=== PATIENT | female | born 1980 | race Caucasian/White ===

== ENCOUNTER 2016-09-19 18:48 | Emergency (ER) | payer MEDICAID ==
--- NOTE | 2016-09-19 19:19 | EDM.PDOC ---
ED HPI GENERAL MEDICAL PROBLEM - General Chief Complaint: ENT Problem Stated Complaint: PAIN JAW Time Seen by Provider: 09/19/16 19:00 Source of Information: Reports: Patient History Limitations: Reports: No limitations - History of Present Illness INITIAL COMMENTS - FREE TEXT/NARRATIVE: HISTORY AND PHYSICAL: History of present illness: Patient is a 35-year-old female who presents to the emergency department stating that she has history of TMJ problems and for the last couple of days for adjustment mocking and very painful. She states it's radiating into her years and she has pain in the ears as well. She hasn't had fevers. She denies difficulty swallowing or sore throat. She usually takes gabapentin for this but it is not helping. She states she was supposed to have surgery but hasn't happened yet no other complaints or concerns Review of systems: As per history of present illness and below otherwise all systems reviewed and negative. Past medical history: As per history of present illness and as reviewed below otherwise noncontributory. Surgical history: As per history of present illness and as reviewed below otherwise noncontributory. Social history: No reported history of drug or alcohol abuse. Family history: As per history of present illness and as reviewed below otherwise noncontributory. Physical exam: General: Nontoxic, patient is very shaky which she states is because of the pain. Vitals reviewed and stable. HEENT: Atraumatic, normocephalic, pupils reactive, TMs are normal bilaterally. Examining the ears causes pain in the jaw. She is exquisitely tender when I minimally palpate around the temporomandibular joint. She is only able to open her mouth about a third [address] way. No cervical lymph nodes. Lungs: Clear to auscultation, no respiratory distress. Heart: Regular rate and rhythm. Extremities: Atraumatic. Neuro: Awake, alert, oriented. Cranial nerves II through XII unremarkable. Cerebellum unremarkable. Motor and sensory unremarkable throughout. Exam nonfocal. Therapeutics: Voltaren 50mg po TID Impression: TMJ pain Plan: Patient given medication to help with symptoms. I referred her to Dr. Schultz, ENT in [place] for additional follow up. Definitive disposition and diagnosis as appropriate pending reevaluation and review of above. Oral/Mouth Pain Score (Numeric/FACES): 9 - Related Data Allergies Allergy/AdvReac Type Severity Reaction Status Date / Time No Known Allergies Allergy Verified 09/19/16 18:57 Home Meds: Home Meds Divalproex Sodium [Depakote] 300 mg PO BID 08/24/15 [History] Estrogens, Conjugated [Premarin] 1 tab PO DAILY 09/19/16 [History] FLUoxetine [PROzac] 1 tab PO DAILY 09/19/16 [History] Past Medical History - Past Health History Medical/Surgical History: Denies Medical/Surgical History HEENT History: Reports: Impaired vision Cardiovascular History: Reports: None Respiratory History: Reports: None Gastrointestinal History: Reports: None 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: Musculoskeletal History: Reports: None Neurological History: Reports: None Psychiatric History: Reports: Anxiety, Bipolar Endocrine/Metabolic History: Reports: None Hematologic History: Reports: None Immunologic History: Reports: None Oncologic (Cancer) History: Reports: None Dermatologic History: Reports: None - Infectious Disease History Infectious Disease History: Reports: Chicken pox - Past Surgical History Female Surgical History: Reports: Hysterectomy Social & Family History - Family History Family Medical History: Noncontributory - Tobacco Use Smoking Status *Q: Current Every Day Smoker Years of Tobacco use: 20 Packs/Tins Daily: 0.5 Second Hand Smoke Exposure: No - Caffeine Use Caffeine Use: Reports: None - Alcohol Use Days Per Week of Alcohol Use: 0 - Recreational Drug Use Recreational Drug Use: No ED ROS GENERAL - Review of Systems Review Of Systems: ROS reveals no pertinent complaints other than HPI. ED EXAM, GENERAL - Physical Exam Exam: See Below (See dictation) Course - Vital Signs Last Recorded V/S: Last Vital Signs Temp 36.2 C 09/19/16 18:54 Pulse 83 09/19/16 18:54 Resp 18 09/19/16 18:54 BP 142/79 H 09/19/16 18:54 Pulse Ox 96 09/19/16 18:54 Departure - Departure Time of Disposition: 19:11 Disposition: Home, Self-Care 01 Condition: good Clinical Impression: TMJ (temporomandibular joint syndrome) Instructions: Temporomandibular Joint Syndrome Referrals: PCP,None [Primary Care Provider] - Forms: ED Department Discharge Additional Instructions: The following information is given to patients seen in the emergency department who are being discharged to home. This information is to outline your options for follow-up care. We provide all patients seen in our emergency department with a follow-up referral. The need for follow-up, as well as the timing and circumstances, are variable depending upon the specifics of your emergency department visit. If you don't have a primary care physician on staff, we will provide you with a referral. We always advise you to contact your personal physician following an emergency department visit to inform them of the circumstance of the visit and for follow-up with them and/or the need for any referrals to a consulting specialist. The emergency department will also refer you to a specialist when appropriate. This referral assures that you have the opportunity for follow-up care with a specialist. All of these measure are taken in an effort to provide you with optimal care, which includes your follow-up. Under all circumstances we always encourage you to contact your private physician who remains a resource for coordinating your care. When calling for follow-up care, please make the office aware that this follow-up is from your recent emergency room visit. If for any reason you are refused follow-up, please contact the [facility] Emergency Department at and asked to speak to the emergency department charge nurse. [facility] - ENT Dr. Schultz [address] [place], [place] [id number]
[2016-09-19 19:35] VITALS: BP 129/77
== END 2016-09-19 19:23 | disposition home or self-care (01) ==
LOC: MW.ED 18:48
DX: M26.629 Arthralgia of temporomandibular joint, unspecified side (principal); F41.9 Anxiety disorder, unspecified; F31.9 Bipolar disorder, unspecified; Z90.710 Acquired absence of both cervix and uterus; F17.210 Nicotine dependence, cigarettes, uncomplicated; Z79.899 Other long term (current) drug therapy
CPT/HCPCS: 99282; 99283

== ENCOUNTER → 2016-10-13 | Outpatient (CLI) | payer MEDICAID | LOC: MW.CHFP 09:49 | PROVIDERS: ATTEND Family Medicine | DX: J02.9 Acute pharyngitis, unspecified (principal) | CPT/HCPCS: 87081; 87880 ==

== ENCOUNTER 2016-12-05 21:46 | Emergency (ER) | payer MEDICAID ==
--- NOTE | 2016-12-05 22:56 | EDM.PDOC ---
ED HPI GENERAL MEDICAL PROBLEM - General Stated Complaint: PT HAS SWOLLEN LEGS AND SORE THROAT Time Seen by Provider: 12/05/16 22:30 Source of Information: Reports: Patient History Limitations: Reports: No Limitations - History of Present Illness INITIAL COMMENTS - FREE TEXT/NARRATIVE: HISTORY AND PHYSICAL: History of present illness: [36-year-old female with a history of TMJ and chronic tobacco abuse now presents to the emergency department complaining of dry cough for several days. Patient is daily smoker but she states his cough is beyond her baseline. She complains of sore throat. No voice changes or difficulty breathing. No productive cough whatsoever. Denies headache or stiff neck no pain patient does report mild swelling in both ankles with no asymmetry your pain. Review of systems: As per history of present illness and below otherwise all systems reviewed and negative. Past medical history: As per history of present illness and as reviewed below otherwise noncontributory. Surgical history: As per history of present illness and as reviewed below otherwise noncontributory. Social history: No reported history of drug or alcohol abuse. Family history: As per history of present illness and as reviewed below otherwise noncontributory. Physical exam: HEENT: Atraumatic, normocephalic, pupils reactive, negative for conjunctival pallor or scleral icterus, mucous membranes moist, throat clear, neck supple, nontender, trachea midline. Lungs: Clear to auscultation, breath sounds equal bilaterally, chest nontender. Heart: S1S2, regular, negative for clicks, rubs, or JVD. Abdomen: Soft, nondistended, nontender. Negative for masses or hepatosplenomegaly. Negative for costovertebral tenderness. Pelvis: Stable nontender. Genitourinary: Deferred. Rectal: Deferred. Extremities: Atraumatic, negative for cords or calf pain. Neurovascular unremarkable. Trace nonpitting edema bilateral ankles with no asymmetry. Neuro: Awake, alert, oriented. Cranial nerves grossly unremarkable. Cerebellum unremarkable. Motor and sensory unremarkable throughout. Exam nonfocal. Diagnostics: [] Therapeutics: [] Impression: [] Plan: [Signs and symptoms consistent with viral URI with pharyngitis. No oropharyngeal exudates. Rapid strep pending to rule out less likely possibility of early strep. Nonproductive cough viral syndrome as well. Normal respiratory rate and pulse ox. Patient has no pain specifically no chest pain or pleurisy. No further workup or treatment indicated. Specifically chest x-ray not clinically indicated a specialist lungs are clear with normal respiratory rate and pulse ox on M.D. exam. Patient aware to take benzonatate as needed for cough. Smoking and follow her doctor tomorrow. Strict return precautions given Definitive disposition and diagnosis as appropriate pending reevaluation and review of above. Throat Pain Score (Numeric/FACES): 7 - Related Data Allergies Allergy/AdvReac Type Severity Reaction Status Date / Time No Known Allergies Allergy Verified 12/05/16 21:58 Home Meds: Home Meds Divalproex Sodium [Depakote] 300 mg PO BID 08/24/15 [History] Estrogens, Conjugated [Premarin] 1 tab PO DAILY 09/19/16 [History] FLUoxetine [PROzac] 1 tab PO DAILY 09/19/16 [History] Benzonatate 200 mg PO TID #30 capsule 12/05/16 [Rx] Past Medical History - Past Health History Medical/Surgical History: Denies Medical/Surgical History HEENT History: Reports: Impaired Vision Cardiovascular History: Reports: None Respiratory History: Reports: None Gastrointestinal History: Reports: None 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: Musculoskeletal History: Reports: None Neurological History: Reports: None Psychiatric History: Reports: Anxiety, Bipolar Endocrine/Metabolic History: Reports: None Hematologic History: Reports: None Immunologic History: Reports: None Oncologic (Cancer) History: Reports: None Dermatologic History: Reports: None - Infectious Disease History Infectious Disease History: Reports: Chicken Pox - Past Surgical History Female Surgical History: Reports: Hysterectomy Social & Family History - Family History Family Medical History: Noncontributory - Tobacco Use Smoking Status *Q: Current Every Day Smoker Years of Tobacco use: 20 Packs/Tins Daily: 0.5 Second Hand Smoke Exposure: No - Caffeine Use Caffeine Use: Reports: None - Alcohol Use Days Per Week of Alcohol Use: 0 - Recreational Drug Use Recreational Drug Use: No ED ROS GENERAL - Review of Systems Review Of Systems: See Below (History of present illness) ED EXAM, GENERAL - Physical Exam Exam: See Below (History of present illness) Course - Vital Signs Last Recorded V/S: Last Vital Signs Temp 36.6 C 12/05/16 21:58 Pulse 97 12/05/16 21:58 Resp 17 12/05/16 21:58 BP 123/72 12/05/16 21:58 Pulse Ox 95 12/05/16 21:58 Departure - Departure Time of Disposition: 22:58 Disposition: Home, Self-Care 01 Condition: good Clinical Impression: Viral URI with cough, Tobacco abuse, Lower extremity edema - Discharge Information Additional Instructions: Your nonproductive cough and sore throat are consistent with a viral syndrome. Take Motrin and Tylenol as needed for discomfort. Rest and drink plenty of fluids. Stop smoking. Follow-up with your DrMonty to discuss smoking cessation. Use Tessalon Perles as needed for cough and return immediately for new severe or worsening symptoms
[2016-12-05 23:30] VITALS: BP 116/68
== END 2016-12-05 23:27 | disposition home or self-care (01) ==
LOC: MW.ED 21:46
DX: J06.9 Acute upper respiratory infection, unspecified (principal); R60.0 Localized edema; F41.9 Anxiety disorder, unspecified; F31.9 Bipolar disorder, unspecified; F17.210 Nicotine dependence, cigarettes, uncomplicated; Z90.710 Acquired absence of both cervix and uterus; Z79.899 Other long term (current) drug therapy
CPT/HCPCS: 87081; 87880; 99283

== ENCOUNTER 2017-03-14 13:45 | Emergency (ER) | payer MEDICAID ==
--- NOTE | 2017-03-14 14:15 | EDM.PDOC ---
ED HPI GENERAL MEDICAL PROBLEM - General Chief Complaint: General Stated Complaint: PT IN PAIN Time Seen by Provider: 03/14/17 14:05 Source of Information: Reports: Patient History Limitations: Reports: No Limitations - History of Present Illness INITIAL COMMENTS - FREE TEXT/NARRATIVE: HISTORY AND PHYSICAL: History of present illness: [A she comes to the emergency room complaining of trembling and stuttering. She has had a cough for the past month and has been taking Mucinex DM every night for the past 5 days. Cough has been productive for yellow colored sputum. Has a history of bipolar disorder and anxiety for which she takes Depakote and Prozac and Xanax. She has has been on these medications for many years and has not made any recent medication changes. Her cough of one-month is concerning to her but she is more worried about the trembling and shaking that she is experiencing in her upper extremities. She's had some episodes of chills but has not checked her temperature. No earaches runny nose or sore throat. No pain in her chest or difficulty breathing. She has not heard any wheezing. No abdominal pain, nausea or vomiting. She has no other complaints or concerns at this time.] Review of systems: As per history of present illness and below otherwise all systems reviewed and negative. Past medical history: As per history of present illness and as reviewed below otherwise noncontributory. Surgical history: As per history of present illness and as reviewed below otherwise noncontributory. Social history: No reported history of drug or alcohol abuse. Family history: As per history of present illness and as reviewed below otherwise noncontributory. Physical exam: HEENT: Atraumatic, normocephalic. TMs are pearly [place] and without effusion. Oral mucous membranes are pink and moist. No tonsillar swelling erythema or exudate. Neck supple, no lymphadenopathy. Lungs: Crackles and wheezing are appreciated in the left mid lung lobe. breath sounds equal bilaterally. Heart: S1S2, regular rate and rhythm. Abdomen: Soft, nondistended, nontender. Extremities: Atraumatic in appearance. She is tremulous to her upper extremities with conversation. No lower extremity involvement. During examination, while focused on taking deep breaths she exhibits no shaking or trembling to her upper or lower extremities. Neurovascular unremarkable. Neuro: Awake, alert, oriented. Motor and sensory unremarkable throughout. Exam nonfocal. Psych: Makes good eye contact and interacts with examiner appropriately. Diagnostics: [Chest x-ray] Therapeutics: [500 mL's normal saline, Ativan 0.5 mg IV] Impression: [Anxiety cough] Plan: [She is given 1 L of normal saline and 0.5 mg of Ativan in the ER. Trembling resolves completely. Chest x-ray is clear. Discussed with her that her cough is likely viral in nature. Recommend she stop any decongestants or cough or cold medications that have a T or DM at the end and that she may have plain Mucinex as needed. Anticipate that her cough will resolve without any further complications. Follow-up with her primary care provider for medication review if she continues to experience anxiety. She is in agreement with today's plan. All of her questions are answered and concerns are addressed.] Definitive disposition and diagnosis as appropriate pending reevaluation and review of above. Generalized Pain Score (Numeric/FACES): 3 - Related Data Allergies Allergy/AdvReac Type Severity Reaction Status Date / Time No Known Allergies Allergy Verified 03/14/17 13:53 Home Meds: Home Meds Divalproex Sodium [Depakote] 300 mg PO BID 08/24/15 [History] FLUoxetine [PROzac] 60 mg PO DAILY 09/19/16 [History] ALPRAZolam [Xanax] 0.5 mg PO DAILY PRN 03/14/17 [History] Benzonatate 200 mg PO DAILY PRN 03/14/17 [History] Past Medical History - Past Health History Medical/Surgical History: Denies Medical/Surgical History HEENT History: Reports: Impaired Vision Cardiovascular History: Reports: None Respiratory History: Reports: None Gastrointestinal History: Reports: None Genitourinary History: Reports: 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: Musculoskeletal History: Reports: None Neurological History: Reports: None Psychiatric History: Reports: Anxiety, Bipolar Endocrine/Metabolic History: Reports: None Hematologic History: Reports: None Immunologic History: Reports: None Oncologic (Cancer) History: Reports: None Dermatologic History: Reports: None - Infectious Disease History Infectious Disease History: Reports: Chicken Pox - Past Surgical History Head Surgeries/Procedures: Reports: None Female Surgical History: Reports: Hysterectomy Social & Family History - Family History Family Medical History: Noncontributory - Tobacco Use Smoking Status *Q: Current Every Day Smoker Years of Tobacco use: 20 Packs/Tins Daily: 0.5 Second Hand Smoke Exposure: No - Caffeine Use Caffeine Use: Reports: None - Alcohol Use Days Per Week of Alcohol Use: 0 - Recreational Drug Use Recreational Drug Use: No ED ROS GENERAL - Review of Systems Review Of Systems: ROS reveals no pertinent complaints other than HPI. ED EXAM, GENERAL - Physical Exam Exam: See Below Course - Vital Signs Last Recorded V/S: Last Vital Signs Temp 97.8 F 03/14/17 13:53 Pulse 85 03/14/17 15:45 Resp 18 03/14/17 15:45 BP 138/82 03/14/17 15:45 Pulse Ox 99 03/14/17 15:45 - Orders/Labs/Meds Orders: Active Orders 24 hr Category Date Time Status Chest 2V [CR] Stat Exams 03/14/17 14:27 Taken Meds: Medications Discontinued Medications Generic Name Dose Route Start Last Admin Trade Name Gabby PRN Reason Stop Dose Admin Sodium Chloride 500 mls @ 999 mls/hr 03/14/17 14:26 03/14/17 14:32 Normal Saline IV 03/14/17 14:56 999 mls/hr STAT ONE Administration Lorazepam 0.5 mg 03/14/17 14:26 03/14/17 14:35 Ativan IVPUSH 03/14/17 14:27 0.5 mg ONETIME ONE Administration Departure - Departure Time of Disposition: 15:40 Disposition: Home, Self-Care 01 Condition: Good Clinical Impression: Anxiety, Cough - Discharge Information Instructions: Cough, Adult, [id number] Referrals: PCP,None [Primary Care Provider] - Forms: ED Department Discharge Additional Instructions: The following information is given to patients seen in the emergency department who are being discharged to home. This information is to outline your options for follow-up care. We provide all patients seen in our emergency department with a follow-up referral. The need for follow-up, as well as the timing and circumstances, are variable depending upon the specifics of your emergency department visit. If you don't have a primary care physician on staff, we will provide you with a referral. We always advise you to contact your personal physician following an emergency department visit to inform them of the circumstance of the visit and for follow-up with them and/or the need for any referrals to a consulting specialist. The emergency department will also refer you to a specialist when appropriate. This referral assures that you have the opportunity for follow-up care with a specialist. All of these measure are taken in an effort to provide you with optimal care, which includes your follow-up. Under all circumstances we always encourage you to contact your private physician who remains a resource for coordinating your care. When calling for follow-up care, please make the office aware that this follow-up is from your recent emergency room visit. If for any reason you are refused follow-up, please contact the [facility] emergency department at and asked to speak to the emergency department charge nurse. [facility] [address] [place] [id number] Follow-up with your primary care provider or at the clinic listed above in 48- 72 hours. Push fluids, get plenty of rest. Discontinue the use of all decongestants and cold medications that end with D or DM. Cough is due to a virus. This will gradually resolve with time. Return to ER as needed as discussed. - My Orders Last 24 Hours: My Active Orders 03/14/17 14:27 Chest 2V [CR] Stat - Assessment/Plan Last 24 Hours: My Active Orders 03/14/17 14:27 Chest 2V [CR] Stat
[2017-03-14] MEDS ORDERED: LORazepam 2 MG/ML MDV IVPUSH ONE (14:26)
[2017-03-14] MEDS ORDERED: Sodium Chloride 0.9% 500 ML IV ONE (14:26)
[2017-03-14 15:54] VITALS: BP 138/82
--- NOTE | 2017-03-15 16:33 | CR ---
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 Site : [id number] Study: XRay Chest [id number]/17/2017 3:18:49 PM Ordering Physician: Doctor Sin Final Report: TECHNIQUE: PA and lateral chest. INDICATION: Shortness of breath. COMPARISON: 10/04/2014. FINDINGS: The lungs are clear. Normal heart size and pulmonary vascularity. No effusion. No pneumothorax. No significant change since prior exam. IMPRESSION: Normal chest. Dictated by Lon Merritt MD @ 03/14/2017 3:32:24 PM Dictated by: Lon Merritt MD @ 03/14/2017 15:33:05 (Electronic Signature) Report Signed by Proxy. MTDVale
== END 2017-03-14 15:50 | disposition home or self-care (01) ==
LOC: MW.ED 13:45
DX: F41.9 Anxiety disorder, unspecified (principal); R05 Cough; F17.210 Nicotine dependence, cigarettes, uncomplicated; Z79.899 Other long term (current) drug therapy; Z90.710 Acquired absence of both cervix and uterus
CPT/HCPCS: 71020; 96374; 99283; J2060; J7040

== ENCOUNTER 2017-08-06 07:24 | Emergency (ER) | payer MEDICAID ==
[2017-08-06] MEDS ORDERED: Ketorolac 60 MG/2 ML SDV IM ONE (07:50)
--- NOTE | 2017-08-06 08:31 | EDM.PDOC ---
ED HPI GENERAL MEDICAL PROBLEM - General Chief Complaint: Respiratory Problem Stated Complaint: FLU LIKE SYM. Time Seen by Provider: 08/06/17 07:31 Source of Information: Reports: Patient History Limitations: Reports: No Limitations - History of Present Illness INITIAL COMMENTS - FREE TEXT/NARRATIVE: History of present illness: []Patient has had cough and congestion fevers and body aches for 4 days. Complains of ear pain and sore throat. She denies any abdominal pain, vomiting or diarrhea Review of systems: As per history of present illness and below otherwise all systems reviewed and negative. Past medical history: As per history of present illness and as reviewed below otherwise noncontributory. Surgical history: As per history of present illness and as reviewed below otherwise noncontributory. Social history: No reported history of drug or alcohol abuse. Family history: As per history of present illness and as reviewed below otherwise noncontributory. Physical exam: General: Well developed, well nourished in NAD HEENT: Atraumatic, normocephalic, pupils reactive, negative for conjunctival pallor or scleral icterus, mucous membranes moist, throat clear, neck supple, nontender, trachea midline. Left TM erythematous and bulging Lungs: Clear to auscultation, breath sounds equal bilaterally, chest nontender. Heart: S1S2, regular, negative for clicks, rubs, or JVD. Abdomen: Soft, nondistended, nontender. Negative for masses or hepatosplenomegaly. Negative for costovertebral tenderness. Pelvis: Stable nontender. Genitourinary: Deferred. Rectal: Deferred. Extremities: Atraumatic, negative for cords or calf pain. Neurovascular unremarkable. Neuro: Awake, alert, oriented. Cranial nerves II through XII unremarkable. Cerebellum unremarkable. Motor and sensory unremarkable throughout. Exam nonfocal. Diagnostics: []Influenza Therapeutics: []Toradol for pain Impression: []URI, left otitis media Plan: []Albuterol, azithromycin, increase fluids follow-up with PMD Definitive disposition and diagnosis as appropriate pending reevaluation and review of above. throat Pain Score (Numeric/FACES): 9 - Related Data Allergies Allergy/AdvReac Type Severity Reaction Status Date / Time No Known Allergies Allergy Verified 08/06/17 07:38 Home Meds: Home Meds Divalproex Sodium [Depakote] 300 mg PO BID 08/24/15 [History] FLUoxetine [PROzac] 60 mg PO DAILY 09/19/16 [History] ALPRAZolam [Xanax] 0.5 mg PO DAILY PRN 03/14/17 [History] Benzonatate 200 mg PO DAILY PRN 03/14/17 [History] Albuterol Sulfate [Ventolin Hfa] 8 gm IH Q4HR PRN #1 [email or web address] 08/06/17 [Rx] Azithromycin [IJD: Azithromycin] 250 mg PO DAILY #6 tab 08/06/17 [Rx] Past Medical History - Past Health History Medical/Surgical History: Denies Medical/Surgical History HEENT History: Reports: Impaired Vision Cardiovascular History: Reports: None Respiratory History: Reports: None Gastrointestinal History: Reports: None Genitourinary History: Reports: None 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: Musculoskeletal History: Reports: None Neurological History: Reports: None Psychiatric History: Reports: Anxiety, Bipolar Endocrine/Metabolic History: Reports: None Hematologic History: Reports: None Immunologic History: Reports: None Oncologic (Cancer) History: Reports: None Dermatologic History: Reports: None - Infectious Disease History Infectious Disease History: Reports: Chicken Pox - Past Surgical History Head Surgeries/Procedures: Reports: None Female Surgical History: Reports: Hysterectomy Social & Family History - Family History Family Medical History: Noncontributory - Tobacco Use Smoking Status *Q: Current Every Day Smoker Years of Tobacco use: 20 Packs/Tins Daily: 0.5 Second Hand Smoke Exposure: No - Caffeine Use Caffeine Use: Reports: None - Alcohol Use Days Per Week of Alcohol Use: 0 - Recreational Drug Use Recreational Drug Use: No ED ROS GENERAL - Review of Systems Review Of Systems: See Below (See history of present illness) ED EXAM, GENERAL - Physical Exam Exam: See Below (See history of present illness) Course - Vital Signs Last Recorded V/S: Last Vital Signs Temp 96.7 F 08/06/17 07:39 Pulse 92 08/06/17 07:39 Resp 20 08/06/17 07:39 BP 142/74 H 08/06/17 07:39 Pulse Ox 97 08/06/17 07:39 - Orders/Labs/Meds Meds: Medications Discontinued Medications Generic Name Dose Route Start Last Admin Trade Name Freq PRN Reason Stop Dose Admin Ketorolac Tromethamine 60 mg 08/06/17 07:50 08/06/17 07:57 Toradol IM 08/06/17 07:51 60 mg ONETIME ONE Administration Departure - Departure Time of Disposition: 08:37 Disposition: Home, Self-Care 01 Condition: Good Clinical Impression: URI (upper respiratory infection) Qualifiers: URI type: unspecified URI Qualified Code(s): J06.9 - Acute upper respiratory infection, unspecified Left otitis media Qualifiers: Otitis media type: unspecified Qualified Code(s): H66.92 - Otitis media, unspecified, left ear - Discharge Information Prescriptions: Albuterol Sulfate [Ventolin Hfa] 8 gm IH Q4HR PRN #1 hfa.aer.ad PRN Reason: Shortness Of Breath Azithromycin [IJD: Azithromycin] 250 mg PO DAILY #6 tab Referrals: Stephany Morales MD [Primary Care Provider] - Forms: ED Department Discharge Additional Instructions: The following information is given to patients seen in the emergency department who are being discharged to home. This information is to outline your options for follow-up care. We provide all patients seen in our emergency department with a follow-up referral. The need for follow-up, as well as the timing and circumstances, are variable depending upon the specifics of your emergency department visit. If you don't have a primary care physician on staff, we will provide you with a referral. We always advise you to contact your personal physician following an emergency department visit to inform them of the circumstance of the visit and for follow-up with them and/or the need for any referrals to a consulting specialist. The emergency department will also refer you to a specialist when appropriate. This referral assures that you have the opportunity for follow-up care with a specialist. All of these measure are taken in an effort to provide you with optimal care, which includes your follow-up. Under all circumstances we always encourage you to contact your private physician who remains a resource for coordinating your care. When calling for follow-up care, please make the office aware that this follow-up is from your recent emergency room visit. If for any reason you are refused follow-up, please contact the [facility] Emergency Department at and asked to speak to the emergency department charge nurse. Albuterol and Zithromax take as directed follow-up with PMD as needed, over-the- counter occasions for symptomatically relief. [facility] [address] [place] [id number]
[2017-08-06 08:49] VITALS: BP 119/68
== END 2017-08-06 08:45 | disposition home or self-care (01) ==
LOC: MW.ED 07:24
DX: J06.9 Acute upper respiratory infection, unspecified (principal); H66.92 Otitis media, unspecified, left ear; F31.9 Bipolar disorder, unspecified; F17.210 Nicotine dependence, cigarettes, uncomplicated; Z79.2 Long term (current) use of antibiotics; Z79.899 Other long term (current) drug therapy
CPT/HCPCS: 87804; 96372; 99283; J1885

== ENCOUNTER 2017-10-15 11:01 | Emergency (ER) | payer MEDICAID ==
[2017-10-15 11:23] VITALS: BP 129/85
--- NOTE | 2017-10-15 11:23 | EDM.PDOC ---
ED HPI GENERAL MEDICAL PROBLEM - General Chief Complaint: ENT Problem Stated Complaint: TOOTHACHE Time Seen by Provider: 10/15/17 11:21 Source of Information: Reports: Patient - History of Present Illness INITIAL COMMENTS - FREE TEXT/NARRATIVE: HISTORY AND PHYSICAL: History of present illness: [Patient with history of poor dentition multiple tooth extractions performed by [facility] in the past her presents with a tooth fracture 5 out of 10 pain no fever nausea vomiting chills sweats] Review of systems: As per history of present illness and below otherwise all systems reviewed and negative. Past medical history: As per history of present illness and as reviewed below otherwise noncontributory. Surgical history: As per history of present illness and as reviewed below otherwise noncontributory. Social history: No reported history of drug or alcohol abuse. Family history: As per history of present illness and as reviewed below otherwise noncontributory. Physical exam: HEENT: Atraumatic, normocephalic, pupils reactive, negative for conjunctival pallor or scleral icterus, mucous membranes moist, throat clear, neck supple, nontender, trachea midline. poor Dentition Lungs: Clear to auscultation, breath sounds equal bilaterally, chest nontender. Heart: S1S2, regular, negative for clicks, rubs, or JVD. Abdomen: Soft, nondistended, nontender. Negative for masses or hepatosplenomegaly. Negative for costovertebral tenderness. Pelvis: Stable nontender. Genitourinary: Deferred. Rectal: Deferred. Extremities: Atraumatic, negative for cords or calf pain. Neurovascular unremarkable. Neuro: Awake, alert, oriented. Cranial nerves II through XII unremarkable. Cerebellum unremarkable. Motor and sensory unremarkable throughout. Exam nonfocal. Diagnostics: [Clinical] Therapeutics: [Amoxicillin Toradol] Impression: [Dental pain ] Definitive disposition and diagnosis as appropriate pending reevaluation and review of above. - Related Data Allergies Allergy/AdvReac Type Severity Reaction Status Date / Time No Known Allergies Allergy Verified 10/15/17 11:16 Home Meds: Home Meds FLUoxetine [PROzac] 60 mg PO DAILY 09/19/16 [History] ALPRAZolam [Xanax] 0.5 mg PO DAILY PRN 03/14/17 [History] Estrogens, Conjugated [Premarin] 10/15/17 [History] Past Medical History - Past Health History Medical/Surgical History: Denies Medical/Surgical History HEENT History: Reports: Impaired Vision Cardiovascular History: Reports: None Respiratory History: Reports: None Gastrointestinal History: Reports: None Genitourinary History: Reports: None 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: Musculoskeletal History: Reports: None Neurological History: Reports: None Psychiatric History: Reports: Anxiety, Bipolar Endocrine/Metabolic History: Reports: None Hematologic History: Reports: None Immunologic History: Reports: None Oncologic (Cancer) History: Reports: None Dermatologic History: Reports: None - Infectious Disease History Infectious Disease History: Reports: Chicken Pox - Past Surgical History Head Surgeries/Procedures: Reports: None Female Surgical History: Reports: Hysterectomy Social & Family History - Family History Family Medical History: Noncontributory - Tobacco Use Smoking Status *Q: Current Every Day Smoker Years of Tobacco use: 20 Packs/Tins Daily: 0.5 Second Hand Smoke Exposure: No - Caffeine Use Caffeine Use: Reports: None - Alcohol Use Days Per Week of Alcohol Use: 0 - Recreational Drug Use Recreational Drug Use: No ED ROS GENERAL - Review of Systems Review Of Systems: ROS reveals no pertinent complaints other than HPI. ED EXAM, GENERAL - Physical Exam Exam: See Below Departure - Departure Time of Disposition: 11:22 Disposition: Home, Self-Care 01 Condition: Good Clinical Impression: Pain, dental - Discharge Information Referrals: Stephany Morales MD [Primary Care Provider] - Additional Instructions: The following information is given to patients seen in the emergency department who are being discharged to home. This information is to outline your options for follow-up care. We provide all patients seen in our emergency department with a follow-up referral. The need for follow-up, as well as the timing and circumstances, are variable depending upon the specifics of your emergency department visit. If you don't have a primary care physician on staff, we will provide you with a referral. We always advise you to contact your personal physician following an emergency department visit to inform them of the circumstance of the visit and for follow-up with them and/or the need for any referrals to a consulting specialist. The emergency department will also refer you to a specialist when appropriate. This referral assures that you have the opportunity for follow-up care with a specialist. All of these measure are taken in an effort to provide you with optimal care, which includes your follow-up. Under all circumstances we always encourage you to contact your private physician who remains a resource for coordinating your care. When calling for follow-up care, please make the office aware that this follow-up is from your recent emergency room visit. If for any reason you are refused follow-up, please contact the [facility] emergency department at and asked to speak to the emergency department charge nurse.
== END 2017-10-15 11:45 | disposition home or self-care (01) ==
LOC: MW.ED 11:01
DX: K08.89 Other specified disorders of teeth and supporting structures (principal); F17.210 Nicotine dependence, cigarettes, uncomplicated; Z79.899 Other long term (current) drug therapy
CPT/HCPCS: 99283

== ENCOUNTER 2017-12-22 18:46 | Emergency (ER) | payer MEDICAID ==
--- NOTE | 2017-12-22 19:23 | EDM.PDOC ---
ED HPI GENERAL MEDICAL PROBLEM - General Chief Complaint: General Stated Complaint: BROKEN TOOTH Time Seen by Provider: 12/22/17 19:11 Source of Information: Reports: Patient History Limitations: Reports: No Limitations - History of Present Illness INITIAL COMMENTS - FREE TEXT/NARRATIVE: HISTORY AND PHYSICAL: []37-year-old female presenting with a fractured tooth on her left lower History of Present Illness: []Patient states that she for broke her tooth 2 days ago. SHe is having more pain tried the [id number] skin Review of Systems: As per history of present illness and below otherwise all systems reviewed and negative. Past medical history: As per history of present illness and as reviewed below otherwise noncontributory. Surgical history: As per history of present illness and as reviewed below otherwise noncontributory. Social history: No reported history of drug or alcohol abuse. Family history: As per history of present illness and as reviewed below otherwise noncontributory. Physical exam: Alert and oriented and questions appropriately she does look to be miserable. Nontoxic and in HEENT: Atraumatic, normocehpalic, pupils reactive, negative for conjunctival pallor or scleral icterus, mucous membranes moist, throat clear, neck supple, nontender, trachea midline. Lungs: Clear to auscultation, breath sounds equal bilaterally, chest non tender. Heart: S1S2, regular, negative for clicks, rubs, or JVD. Abdomen: Soft, nondistended, nontender. Negative for masses or hepatossplenmegaly. Negative for costovertebral tenderness. Pelvis: Stable nontender. Genitourinary: Deferred. Rectal: Deferred Extremities: Atraumatic, negative for cords or calf pain. Neurovascular unremarkable. Neuro: Awake, alert, oriented. Cranial nerves II through XII unremarkable. Cerebellum unremarkable. Motor and sensory unremarkable throughout. Exam nonfocal. Diagnostics: [] Therapeutics: []Toradol Cement temporary Impression: []Fractured tooth Plan: []Discharge home See your dentist next week this is the only way to fix this problem [id number] pain medication Definitive disposition and diagnosis as appropriate pending reevaluation and review of above. Onset: Sudden Duration: Day(s): (2) Location: Reports: Face Quality: Reports: Stabbing Improves with: Reports: None Worsens with: Reports: None Associated Symptoms: Reports: No Other Symptoms Left Oral/Mouth Pain Score (Numeric/FACES): 9 - Related Data Allergies Allergy/AdvReac Type Severity Reaction Status Date / Time No Known Allergies Allergy Verified 12/22/17 19:10 Home Meds: Home Meds FLUoxetine [PROzac] 60 mg PO DAILY 09/19/16 [History] ALPRAZolam [Xanax] 0.5 mg PO DAILY PRN 03/14/17 [History] Estrogens, Conjugated [Premarin] 10/15/17 [History] Past Medical History - Past Health History Medical/Surgical History: Denies Medical/Surgical History HEENT History: Reports: Impaired Vision Cardiovascular History: Reports: None Respiratory History: Reports: None Gastrointestinal History: Reports: None Genitourinary History: Reports: None 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: Musculoskeletal History: Reports: None Neurological History: Reports: None Psychiatric History: Reports: Anxiety, Bipolar Endocrine/Metabolic History: Reports: None Hematologic History: Reports: None Immunologic History: Reports: None Oncologic (Cancer) History: Reports: None Dermatologic History: Reports: None - Infectious Disease History Infectious Disease History: Reports: Chicken Pox - Past Surgical History Head Surgeries/Procedures: Reports: None Female Surgical History: Reports: Hysterectomy Social & Family History - Family History Family Medical History: Noncontributory - Tobacco Use Smoking Status *Q: Current Every Day Smoker Years of Tobacco use: 20 Packs/Tins Daily: 0.5 - Caffeine Use Caffeine Use: Reports: None ED ROS GENERAL - Review of Systems Review Of Systems: ROS reveals no pertinent complaints other than HPI. ED EXAM, GENERAL - Physical Exam Exam: See Below (see dictation) Course - Vital Signs Last Recorded V/S: Last Vital Signs Temp 35.8 C 12/22/17 19:07 Pulse 93 12/22/17 19:07 Resp 18 12/22/17 19:07 BP 139/72 12/22/17 19:07 Pulse Ox 96 12/22/17 19:07 - Orders/Labs/Meds Orders: Active Orders 24 hr Category Date Time Status Ketorolac [Toradol] Med 12/22/17 19:25 Once 60 mg IM ONETIME ONE Medication Orders Ketorolac Tromethamine (Toradol) 60 mg IM ONETIME ONE Stop: 12/22/17 19:26 Meds: Medications Generic Name Dose Route Start Last Admin Trade Name Freq PRN Reason Stop Dose Admin Ketorolac Tromethamine 60 mg 12/22/17 19:25 Toradol IM 12/22/17 19:26 ONETIME ONE Departure - Departure Time of Disposition: :29 Disposition: Home, Self-Care 01 Condition: Good Clinical Impression: Pain, dental - Discharge Information Referrals: Stephany Morales MD [Primary Care Provider] - Forms: ED Department Discharge Additional Instructions: The following information is given to patients seen in the emergency department who are being discharged to home. This information is to outline your options for follow-up care. We provide all patients seen in our emergency department with a follow-up referral. The need for follow-up, as well as the timing and circumstances, are variable depending upon the specifics of your emergency department visit. If you don't have a primary care physician on staff, we will provide you with a referral. We always advise you to contact your personal physician following an emergency department visit to inform them of the circumstance of the visit and for follow-up with them and/or the need for any referrals to a consulting specialist. The emergency department will also refer you to a specialist when appropriate. This referral assures that you have the opportunity for followup care with a specialist. All of these measure are taken in an effort to provide you with optimal care, which includes your followup. Under all circumstances we always encourage you to contact your private physician who remains a resource for coordinating your care. When calling for followup care, please make the office aware that this follow-up is from your recent emergency room visit. If for any reason you are refused follow-up, please contact the [facility] emergency department at and asked to speak to the emergency department charge nurse. You have a tooth fracture Temporary cement has been filled into your tooth Toradol was given for pain Dental balls will be given for pain to use into the site of your mouth Follow-up with your dentist next week as this will be done permanent fix for this tooth pain - My Orders Last 24 Hours: My Active Orders 12/22/17 19:25 Ketorolac [Toradol] 60 mg IM ONETIME ONE - Assessment/Plan Last 24 Hours: My Active Orders 12/22/17 19:25 Ketorolac [Toradol] 60 mg IM ONETIME ONE
[2017-12-22] MEDS ORDERED: Ketorolac 60 MG/2 ML SDV IM ONE (19:25)
[2017-12-22] MEDS ORDERED: Benzocaine 20% Topical Spray UD MUCMEM ONE (19:30)
[2017-12-22] MEDS ORDERED: Lidocaine 2% Viscous Solution 15 ML Cup PO ONE (19:30)
[2017-12-22 20:13] VITALS: BP 112/69
== END 2017-12-22 20:10 | disposition home or self-care (01) ==
LOC: MW.ED 18:46
DX: K03.81 Cracked tooth (principal); F17.210 Nicotine dependence, cigarettes, uncomplicated; Z79.899 Other long term (current) drug therapy
CPT/HCPCS: 96372; 99283; A9270; J1885

== ENCOUNTER 2018-02-14 17:11 | Emergency (ER) | payer SELFPAY ==
[2018-02-14 17:26] VITALS: BP 148/95
[2018-02-14] MEDS ORDERED: Albuterol/Ipratropium 3.0-0.5 MG/3 ML Neb Soln NEB ONE (17:47)
[2018-02-14] MEDS ORDERED: predniSONE 20 MG Tab PO ONE (17:47)
--- NOTE | 2018-02-14 17:51 | EDM.PDOC ---
ED HPI GENERAL MEDICAL PROBLEM - General Chief Complaint: Respiratory Problem Stated Complaint: CHEST IS TIGHT AND HAS A COUPH Time Seen by Provider: 02/14/18 17:42 - History of Present Illness INITIAL COMMENTS - FREE TEXT/NARRATIVE: HISTORY AND PHYSICAL: History of present illness: The patient is a 37-year-old female who presents with a spastic cough that has been episodically occurring since yesterday which is nonproductive and not associated with a fever. The patient smokes cigarettes, 10 cigarettes per day. Patient has had bronchitis in the past using an inhaler but does not use it regularly. She has no diagnosis of pulmonary disease and has no ill contacts. The patient says she only has chest discomfort when she is coughing and feels like when she starts to cough she cannot stop and it is spastic and takes her breath away and causes her to have a sore throat along with the chest discomfort. When she is just breathing and at rest she is not having chest pain. She has no leg pain or swelling no abdominal complaints no vomiting or diarrhea. Patient has a history of a hysterectomy and is not . The patient also admits that she does drink a lot of caffeinated products on a daily basis. Review of systems: As per history of present illness and below otherwise all systems reviewed and negative. Past medical history: As per history of present illness and as reviewed below otherwise noncontributory. Surgical history: As per history of present illness and as reviewed below otherwise noncontributory. Social history: No reported history of drug or alcohol abuse. Family history: As per history of present illness and as reviewed below otherwise noncontributory. Physical exam: General: Well-developed well-nourished female who is nontoxic and vital signs are noted by me. I heard and appreciated the cough on my evaluation which is dry hacky and spastic in nature. HEENT: Atraumatic, normocephalic, pupils reactive, negative for conjunctival pallor or scleral icterus, mucous membranes moist, throat clear, neck supple, nontender, trachea midline. There is no cervical adenopathy or nuchal rigidity Lungs: There are coarse breath sounds bilaterally with some rhonchi and some scattered fine wheezing but no work of breathing or stridor, breath sounds equal bilaterally, chest nontender. Heart: S1S2, regular rhythm and slightly tachycardic rate on my evaluation. Abdomen: Soft, nondistended, nontender. NABS Pelvis: Deferred Genitourinary: Deferred. Rectal: Deferred. Extremities: Atraumatic, negative for cords or calf pain. Neurovascular unremarkable. No pedal edema or leg asymmetry Neuro: Awake, alert, oriented. Cranial nerves II through XII unremarkable. Cerebellum unremarkable. Motor and sensory unremarkable throughout. Exam nonfocal. Diagnostics: Chest x-ray EKG Therapeutics: DuoNeb prednisone spacer and spacer teaching Impression: Bronchitis Definitive disposition and diagnosis as appropriate pending reevaluation and review of above. 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: Musculoskeletal History: Reports: None Neurological History: Reports: None Psychiatric History: Reports: Anxiety, Bipolar Endocrine/Metabolic History: Reports: None Hematologic History: Reports: None Immunologic History: Reports: None Oncologic (Cancer) History: Reports: None Dermatologic History: Reports: None - Infectious Disease History Infectious Disease History: Reports: Chicken Pox - Past Surgical History Head Surgeries/Procedures: Reports: None Female Surgical History: Reports: Hysterectomy Social & Family History - Family History Family Medical History: Noncontributory - Tobacco Use Smoking Status *Q: Current Every Day Smoker Years of Tobacco use: 20 Packs/Tins Daily: 0.5 - Caffeine Use Caffeine Use: Reports: Coffee, Energy Drinks, Soda, Tea - Recreational Drug Use Recreational Drug Use: No ED ROS GENERAL - Review of Systems Review Of Systems: ROS reveals no pertinent complaints other than HPI. ED EXAM, GENERAL - Physical Exam Exam: See Below (See dictation) Course - Vital Signs Last Recorded V/S: Last Vital Signs Temp 36.8 C 02/14/18 17:24 Pulse 114 H 02/14/18 17:24 Resp 16 02/14/18 17:24 BP 148/95 H 02/14/18 17:24 Pulse Ox 95 02/14/18 17:24 - Orders/Labs/Meds Orders: Active Orders 24 hr Category Date Time Status Communication Order [RC] STAT Care 02/14/18 17:48 Active EKG Documentation Completion [RC] STAT Care 02/14/18 17:47 Active RT Aerosol Therapy [RC] ASDIRECTED Care 02/14/18 17:47 Active Chest 2V [CR] Stat Exams 02/14/18 17:47 Taken Meds: Medications Discontinued Medications Generic Name Dose Route Start Last Admin Trade Name Freq PRN Reason Stop Dose Admin Albuterol/Ipratropium 3 ml 02/14/18 17:47 02/14/18 18:00 Duoneb 3.0-0.5 Mg/3 Ml NEB 02/14/18 17:48 3 ml ONETIME ONE Administration Prednisone 40 mg 02/14/18 17:47 02/14/18 18:00 Prednisone PO 02/14/18 17:48 40 mg ONETIME ONE Administration Departure - Departure Time of Disposition: 18:51 Disposition: Home, Self-Care 01 Condition: Good Clinical Impression: Bronchitis - Discharge Information Referrals: PCP,None [Primary Care Provider] - Forms: ED Department Discharge Additional Instructions: The following information is given to patients seen in the emergency department who are being discharged to home. This information is to outline your options for follow-up care. We provide all patients seen in our emergency department with a follow-up referral. The need for follow-up, as well as the timing and circumstances, are variable depending upon the specifics of your emergency department visit. If you don't have a primary care physician on staff, we will provide you with a referral. We always advise you to contact your personal physician following an emergency department visit to inform them of the circumstance of the visit and for follow-up with them and/or the need for any referrals to a consulting specialist. The emergency department will also refer you to a specialist when appropriate. This referral assures that you have the opportunity for followup care with a specialist. All of these measure are taken in an effort to provide you with optimal care, which includes your followup. Under all circumstances we always encourage you to contact your private physician who remains a resource for coordinating your care. When calling for followup care, please make the office aware that this follow-up is from your recent emergency room visit. If for any reason you are refused follow-up, please contact the [facility] emergency department at and ask to speak to the emergency department charge nurse. [facility] Primary care- Internal Medicine and Family [address] [address] Push hydration and rest. Please use the inhaler every 6 hours for the next 2-3 days and then every 6 hours as needed with a spacer you have been given. Please take the steroids as prescribed until they are finished. Use cough medication as needed but take only when you're at home. Please try to reduce caffeine intake and push hydration. Please call and schedule a follow-up appointment in the clinic and return to ER as needed and as discussed. Take [id number] Tylenol or ibuprofen for pain and fevers. - My Orders Last 24 Hours: My Active Orders 02/14/18 17:47 EKG Documentation Completion [RC] STAT RT Aerosol Therapy [RC] ASDIRECTED Chest 2V [CR] Stat 02/14/18 17:48 Communication Order [RC] STAT - Assessment/Plan Last 24 Hours: My Active Orders 02/14/18 17:47 EKG Documentation Completion [RC] STAT RT Aerosol Therapy [RC] ASDIRECTED Chest 2V [CR] Stat 02/14/18 17:48 Communication Order [RC] STAT
--- NOTE | 2018-02-15 10:02 | CR ---
EXAM DATE: 02/14/18 PATIENT'S AGE: 37 Patient: JONATHON PARKER Facility: [place], [place] Site . Site : 1980 Study: XRay Chest [id number]/[id number] 6:25:12 PM Ordering Physician: Ki Alcaraz Final Report: INDICATION: Dry cough. Chest tightness. TECHNIQUE: Chest 2 views COMPARISON: 03/14/2017 FINDINGS: Cardiovascular and mediastinum: Heart size and vasculature are normal in caliber and appearance. Lungs and pleural spaces: Lungs are clear. No sign of infiltrate or mass. No sign of pleural effusion. No pneumothorax. Bones and soft tissues: No significant findings. IMPRESSION: No acute findings and no significant changes from the prior exam. Dictated by Kip Ceballos MD @ Feb 14 2018 6:50PM (Electronic Signature) Report Signed by Proxy. PAWEL
== END 2018-02-14 19:10 | disposition home or self-care (01) ==
LOC: MW.ED 17:11
DX: J40 Bronchitis, not specified as acute or chronic (principal); F17.210 Nicotine dependence, cigarettes, uncomplicated; Z79.899 Other long term (current) drug therapy
CPT/HCPCS: 71046; 93005; 94640; 99284; A9270; J7620-GY

== ENCOUNTER 2018-03-20 11:22 | Emergency (ER) | payer SELFPAY ==
[2018-03-20 11:45] VITALS: BP 142/88
[2018-03-20] MEDS ORDERED: Benzocaine 20% Topical Spray UD MUCMEM ONE (12:00)
[2018-03-20] MEDS ORDERED: Acetaminophen/HYDROcodone 325-10 MG Tab PO ONE (12:00)
[2018-03-20] MEDS ORDERED: Lidocaine 2% Viscous Solution 15 ML Cup PO ONE (12:00)
--- NOTE | 2018-03-20 12:04 | EDM.PDOC ---
ED HPI GENERAL MEDICAL PROBLEM - General Chief Complaint: General Stated Complaint: TOOTH BROKE- NEEDS ANTIBIOTICS Time Seen by Provider: 03/20/18 11:35 - History of Present Illness INITIAL COMMENTS - FREE TEXT/NARRATIVE: HISTORY AND PHYSICAL: History of present illness: Patient is a 37-year-old white female presents with concern of dental pain and swelling to her left jaw she denies fever chills nausea vomiting or other complaints Review of systems: As per history of present illness and below otherwise all systems reviewed and negative. Past medical history: As per history of present illness and as reviewed below otherwise noncontributory. Surgical history: As per history of present illness and as reviewed below otherwise noncontributory. Social history: No reported history of drug or alcohol abuse. Family history: As per history of present illness and as reviewed below otherwise noncontributory. Physical exam: HEENT: Atraumatic, normocephalic, pupils reactive, negative for conjunctival pallor or scleral icterus, mucous membranes moist, throat clear, neck supple, nontender, trachea midline. Patient has generally poor dentition she has swelling of her left jaw and a obvious dental keenan with gingival edema of left lower molar Lungs: Clear to auscultation, breath sounds equal bilaterally, chest nontender. Heart: S1S2, regular, negative for clicks, rubs, or JVD. Abdomen: Soft, nondistended, nontender. Negative for masses or hepatosplenomegaly. Negative for costovertebral tenderness. Pelvis: Stable nontender. Genitourinary: Deferred. Rectal: Deferred. Extremities: Atraumatic, negative for cords or calf pain. Neurovascular unremarkable. Neuro: Awake, alert, oriented. Cranial nerves II through XII unremarkable. Cerebellum unremarkable. Motor and sensory unremarkable throughout. Exam nonfocal. Diagnostics: None Therapeutics: Hydrocodone 10 mg by mouth dental balls Impression: #1 dentalgia #2 dental caries #3 dental abscess Definitive disposition and diagnosis as appropriate pending reevaluation and review of above. 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: Musculoskeletal History: Reports: None Neurological History: Reports: None Psychiatric History: Reports: Anxiety, Bipolar Endocrine/Metabolic History: Reports: None Hematologic History: Reports: None Immunologic History: Reports: None Oncologic (Cancer) History: Reports: None Dermatologic History: Reports: None - Infectious Disease History Infectious Disease History: Reports: Chicken Pox - Past Surgical History Head Surgeries/Procedures: Reports: None Female Surgical History: Reports: Hysterectomy Social & Family History - Family History Family Medical History: Noncontributory - Caffeine Use Caffeine Use: Reports: Coffee, Energy Drinks, Soda, Tea ED ROS GENERAL - Review of Systems Review Of Systems: ROS reveals no pertinent complaints other than HPI. ED EXAM, GENERAL - Physical Exam Exam: See Below (The dictation) Course - Vital Signs Last Recorded V/S: Last Vital Signs Temp 36.1 C 03/20/18 11:42 Pulse 89 03/20/18 11:42 Resp 18 03/20/18 11:42 BP 142/88 H 03/20/18 11:42 Pulse Ox 98 03/20/18 11:42 Departure - Departure Time of Disposition: 12:02 Disposition: Home, Self-Care 01 Condition: Good Clinical Impression: Dentalgia, Dental abscess, Dental caries - Discharge Information *PRESCRIPTION DRUG MONITORING PROGRAM REVIEWED*: Not Applicable *COPY OF PRESCRIPTION DRUG MONITORING REPORT IN PATIENT SORAYA: Not Applicable Referrals: PCP,None [Primary Care Provider] - Additional Instructions: The following information is given to patients seen in the emergency department who are being discharged to home. This information is to outline your options for follow-up care. We provide all patients seen in our emergency department with a follow-up referral. The need for follow-up, as well as the timing and circumstances, are variable depending upon the specifics of your emergency department visit. If you don't have a primary care physician on staff, we will provide you with a referral. We always advise you to contact your personal physician following an emergency department visit to inform them of the circumstance of the visit and for follow-up with them and/or the need for any referrals to a consulting specialist. The emergency department will also refer you to a specialist when appropriate. This referral assures that you have the opportunity for followup care with a specialist. All of these measure are taken in an effort to provide you with optimal care, which includes your followup. Under all circumstances we always encourage you to contact your private physician who remains a resource for coordinating your care. When calling for followup care, please make the office aware that this follow-up is from your recent emergency room visit. If for any reason you are refused follow-up, please contact the [facility] emergency department at and asked to speak to the emergency department charge nurse. Naproxen pen VK dental balls as directed follow-up dentist as discussed return as needed as discussed
== END 2018-03-20 12:20 | disposition home or self-care (01) ==
LOC: MW.ED 11:22
DX: K04.7 Periapical abscess without sinus (principal); K02.9 Dental caries, unspecified
CPT/HCPCS: 99282; A9270

== ENCOUNTER 2019-03-20 15:35 | Emergency (ER) | payer MEDICAID ==
[2019-03-20] MEDS ORDERED: Lidocaine 2% Viscous Solution 15 ML Cup PO ONE (15:41)
[2019-03-20] MEDS ORDERED: Benzocaine 20% Topical Spray UD MUCMEM ONE (15:41)
[2019-03-20 15:44] VITALS: BP 137/89; PULSE 121
--- NOTE | 2019-03-20 15:44 | EDM.PDOC ---
ED HPI GENERAL MEDICAL PROBLEM - General Chief Complaint: ENT Problem Stated Complaint: TOOTH COMPLAINT Time Seen by Provider: 03/20/19 15:41 Source of Information: Reports: Patient History Limitations: Reports: No Limitations - History of Present Illness INITIAL COMMENTS - FREE TEXT/NARRATIVE: HISTORY AND PHYSICAL: History of present illness: Patient is a 38 old female who presents to the emergency room with complaints of left posterior dental pain. She states a few weeks ago she had cracked her tooth resulting in pain and swelling along the gumline. She currently is unable to get an appointment for the dentist as she cannot afford this. Patient denies any fever, chills, headache, change in vision, syncope or near syncope. Denies any chest pain, back pain, shortness of breath or cough. Denies any abdominal pain, nausea, vomiting, diarrhea, constipation or dysuria. Has not noted any blood in urine or stool. Patient has been eating and drinking appropriately. Review of systems: As per history of present illness and below otherwise all systems reviewed and negative. Past medical history: As per history of present illness and as reviewed below otherwise noncontributory. Surgical history: As per history of present illness and as reviewed below otherwise noncontributory. Social history: See social history for further information Family history: As per history of present illness and as reviewed below otherwise noncontributory. Physical exam: General: Well-developed and well-nourished 38-year-old female. Alert and oriented. Nontoxic appearing and in no acute distress. HEENT: Atraumatic, normocephalic, pupils equal and reactive bilaterally, negative for conjunctival pallor or scleral icterus, mucous membranes moist, multiple dental caries noted, decaying tooth noted to the left posterior molar with erythema along the gumline. TMs normal bilaterally, throat clear, neck supple, nontender, trachea midline. No drooling or trismus noted. No meningeal signs. No hot potato voice noted. Lungs: Clear to auscultation, breath sounds equal bilaterally, chest nontender. Heart: S1S2, regular rate and rhythm without overt murmur Abdomen: Soft, nondistended, nontender. Skin: Intact, warm, dry. No lesions or rashes noted. Extremities: Atraumatic, moves all extremities per self without difficulty or deficits, negative for cords or calf pain. Neurovascular unremarkable. Neuro: Awake, alert, oriented. Cranial nerves II through XII unremarkable. Cerebellum unremarkable. Motor and sensory unremarkable throughout. Exam nonfocal. Notes: Medication and supportive care measures were reviewed and discussed. Voices understanding and is agreeable to plan of care. Denies any further questions or concerns at this time. Diagnostics: None Therapeutics: Viscous Lidocaine, Hurricane Stan[place] Prescription: Pen CHRISTY Sewell (#[id number]) Impression: Dental Decay Dental Abscess Plan: 1. Please take the antibiotic as prescribed. 2. Tylenol and/or ibuprofen as needed for pain management. "Tooth Balls" have been given to you; apply along the gumline every 2-3 hours as needed. Do not swallow these; external use only. 3. Follow-up with a dentist for definitive care. Return to the ED as needed and as discussed. Definitive disposition and diagnosis as appropriate pending reevaluation and review of above. - Related Data Allergies Allergy/AdvReac Type Severity Reaction Status Date / Time No Known Allergies Allergy Verified 03/20/19 15:44 Home Meds: Home Meds FLUoxetine [PROzac] 60 mg PO DAILY 09/19/16 [History] Dextroamphetamine/Amphetamine [Adderall] 03/20/19 [History] Estrogens, Conjugated [Premarin] 03/20/19 [History] Penicillin V Potassium 500 mg PO BID 10 Days #20 tablet 03/20/19 [Rx] traMADol [Ultram] 50 mg PO Q4H PRN #15 tab 03/20/19 [Rx] Past Medical History - Past Health History Medical/Surgical History: Denies Medical/Surgical History HEENT History: Reports: Impaired Vision Cardiovascular History: Reports: None Respiratory History: Reports: None Gastrointestinal History: Reports: None Genitourinary History: Reports: None 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: Musculoskeletal History: Reports: None Neurological History: Reports: None Psychiatric History: Reports: Anxiety, Bipolar Endocrine/Metabolic History: Reports: None Hematologic History: Reports: None Immunologic History: Reports: None Oncologic (Cancer) History: Reports: None Dermatologic History: Reports: None - Infectious Disease History Infectious Disease History: Reports: Chicken Pox - Past Surgical History Head Surgeries/Procedures: Reports: None Female Surgical History: Reports: Hysterectomy Social & Family History - Family History Family Medical History: Noncontributory - Caffeine Use Caffeine Use: Reports: Coffee, Energy Drinks, Soda, Tea ED ROS ENT - Review of Systems Review Of Systems: ROS reveals no pertinent complaints other than HPI. ED EXAM, ENT - Physical Exam Exam: See Below (See dictation) Course - Vital Signs Last Recorded V/S: Last Vital Signs Temp 96.7 F 03/20/19 15:39 Pulse 121 H 03/20/19 15:39 Resp 18 03/20/19 15:39 BP 137/89 03/20/19 15:39 Pulse Ox 96 03/20/19 15:39 - Orders/Labs/Meds Meds: Medications Discontinued Medications Generic Name Dose Route Start Last Admin Trade Name Freq PRN Reason Stop Dose Admin Benzocaine 2 each 03/20/19 15:41 Hurricaine One 20% MUCMEM 03/20/19 15:42 ONETIME ONE Lidocaine HCl 15 ml 03/20/19 15:41 Xylocaine 2% Viscous PO 03/20/19 15:42 ONETIME ONE Departure - Departure Time of Disposition: 16:01 Disposition: Home, Self-Care 01 Clinical Impression: Dental abscess, Dental decay - Discharge Information Prescriptions: Penicillin V Potassium 500 mg PO BID 10 Days #20 tablet traMADol [Ultram] 50 mg PO Q4H PRN #15 tab PRN Reason: Pain Instructions: Dental Abscess, [id number] Referrals: PCP,Unknown [Primary Care Provider] - Forms: ED Department Discharge Additional Instructions: The following information is given to patients seen in the emergency department who are being discharged to home. This information is to outline your options for follow-up care. We provide all patients seen in our emergency department with a follow-up referral. The need for follow-up, as well as the timing and circumstances, are variable depending upon the specifics of your emergency department visit. If you don't have a primary care physician on staff, we will provide you with a referral. We always advise you to contact your personal physician following an emergency department visit to inform them of the circumstance of the visit and for follow-up with them and/or the need for any referrals to a consulting specialist. The emergency department will also refer you to a specialist when appropriate. This referral assures that you have the opportunity for follow-up care with a specialist. All of these measure are taken in an effort to provide you with optimal care, which includes your follow-up. Under all circumstances we always encourage you to contact your private physician who remains a resource for coordinating your care. When calling for follow-up care, please make the office aware that this follow-up is from your recent emergency room visit. If for any reason you are refused follow-up, please contact the [facility] Emergency Department at and asked to speak to the emergency department charge nurse. [facility] [address], [place] [address] [facility] [address] [place] [id number] 1. Please take the antibiotic as prescribed. 2. Tylenol and/or ibuprofen as needed for pain management. "Tooth Balls" have been given to you; apply along the gumline every 2-3 hours as needed. Do not swallow these; external use only. 3. Follow-up with a dentist for definitive care. Return to the ED as needed and as discussed.
== END 2019-03-20 16:15 | disposition home or self-care (01) ==
LOC: MW.ED 15:35
DX: K04.7 Periapical abscess without sinus (principal); K02.9 Dental caries, unspecified; Z79.899 Other long term (current) drug therapy; Z90.710 Acquired absence of both cervix and uterus
CPT/HCPCS: 99282; A9270

== ENCOUNTER 2019-07-15 14:21 | Emergency (ER) | payer MEDICAID ==
[2019-07-15] MEDS ORDERED: Sodium Chloride 0.9% 1,000 ML IV ONE (14:41)
[2019-07-15] MEDS ORDERED: Ondansetron 4 MG/2 ML SDV IVPUSH ONE (14:41)
--- NOTE | 2019-07-15 14:41 | EDM.PDOC ---
ED HPI GENERAL MEDICAL PROBLEM - General Chief Complaint: Respiratory Problem Stated Complaint: CHEST CONGESTION Time Seen by Provider: 07/15/19 14:22 Source of Information: Reports: Patient History Limitations: Reports: No Limitations - History of Present Illness INITIAL COMMENTS - FREE TEXT/NARRATIVE: HISTORY AND PHYSICAL: History of present illness: Patient is a 38-year-old female who presents to the emergency room with complaints of cough, shortness of breath, epigastric and right flank pain, nausea and vomiting. She states she has not felt well over the past 2 days. She denies any personal history of any cardiac or pulmonary diseases. Patient denies any fever, chills, headache, change in vision, syncope or near syncope. Denies any chest pain, back pain, neck pain/stiffness. Denies any diarrhea, constipation or dysuria. Has not noted any blood in urine or stool. Patient has been eating and drinking appropriately. Denies any chance of , had complete hysterectomy. Review of systems: As per history of present illness and below otherwise all systems reviewed and negative. Past medical history: As per history of present illness and as reviewed below otherwise noncontributory. Surgical history: As per history of present illness and as reviewed below otherwise noncontributory. Social history: See social history for further information Family history: As per history of present illness and as reviewed below otherwise noncontributory. Physical exam: General: Well-developed and well-nourished 38-year-old female. Alert and appropriate for age. Nontoxic-appearing and in no acute distress. HEENT: Atraumatic, normocephalic, pupils equal and reactive bilaterally, negative for conjunctival pallor or scleral icterus, mucous membranes moist, TMs normal bilaterally, throat erythematous without exudate or soft tissue swelling/fullness, neck supple, nontender, trachea midline. No drooling or trismus noted. No meningeal signs. No hot potato voice noted. Lungs: Diminished over right posterior base, faint wheezing noted bilateral bases, chest nontender. Harsh loose cough noted. Heart: S1S2, regular rate and rhythm without overt murmur Abdomen: Soft, nondistended, nonspecific epigastric tenderness. Negative for masses or hepatosplenomegaly. Negative for costovertebral tenderness. Pelvis: Stable nontender. Skin: Intact, warm, dry. No lesions or rashes noted. Extremities: Atraumatic, moves all extremities per self without difficulty or deficits, negative for cords or calf pain. Neurovascular unremarkable. Neuro: Awake, alert, oriented. Cranial nerves II through XII unremarkable. Cerebellum unremarkable. Motor and sensory unremarkable throughout. Exam nonfocal. Notes: Diagnostics are unremarkable. Patient's vital signs have improved. I do not feel the patient warrants any further imaging of her abdomen or pelvis. We did discuss the need for follow-up. Signs and symptoms that would prompt her to return to the emergency room were reviewed and discussed. Medication and supportive care measures were reviewed and discussed. Voices understanding and is agreeable to plan of care. Denies any further questions or concerns at this time. Diagnostics: CBC, CMP, UA, 2 view chest, strep, influenza Therapeutics: IV fluid, Solu-Medrol, Zofran, DuoNeb Prescription: Zpak, Zofran, Tessalone Hilary Impression: Bronchitis Epigastric Pain Plan: 1. Please use Tylenol and/or Ibuprofen as needed for pain and fever management. You can use [id number] cough and cold medication for symptomatic relief. 2. Get plenty of Rest. Encourage fluids to prevent dehydration. 3. Please follow up with your primary care provider. Return to the ED as needed as discussed. Definitive disposition and diagnosis as appropriate pending reevaluation and review of above. chest Pain Score (Numeric/FACES): 8 - Related Data Allergies Allergy/AdvReac Type Severity Reaction Status Date / Time No Known Allergies Allergy Verified 07/15/19 14:32 Home Meds: Home Meds FLUoxetine [PROzac] 60 mg PO DAILY 09/19/16 [History] Dextroamphetamine/Amphetamine [Adderall] 30 mg PO DAILY 03/20/19 [History] Estrogens, Conjugated [Premarin] 0.6 mg PO DAILY 03/20/19 [History] Past Medical History - Past Health History Medical/Surgical History: Denies Medical/Surgical History HEENT History: Reports: Impaired Vision Cardiovascular History: Reports: None Respiratory History: Reports: None Gastrointestinal History: Reports: None Genitourinary History: Reports: None 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: Musculoskeletal History: Reports: None Neurological History: Reports: None Psychiatric History: Reports: Anxiety, Bipolar Endocrine/Metabolic History: Reports: None Hematologic History: Reports: None Immunologic History: Reports: None Oncologic (Cancer) History: Reports: None Dermatologic History: Reports: None - Infectious Disease History Infectious Disease History: Reports: Chicken Pox - Past Surgical History Head Surgeries/Procedures: Reports: None Female Surgical History: Reports: Hysterectomy Social & Family History - Family History Family Medical History: Noncontributory - Tobacco Use Smoking Status *Q: Never Smoker Second Hand Smoke Exposure: No - Caffeine Use Caffeine Use: Reports: Coffee, Energy Drinks, Soda, Tea - Recreational Drug Use Recreational Drug Use: No ED ROS GENERAL - Review of Systems Review Of Systems: Comprehensive ROS is negative, except as noted in HPI. ED EXAM, GENERAL - Physical Exam Exam: See Below (See dictation) Course - Vital Signs Last Recorded V/S: Last Vital Signs Temp 98.1 F 07/15/19 14:33 Pulse 116 H 07/15/19 14:33 Resp 18 07/15/19 14:33 BP 129/82 07/15/19 14:33 Pulse Ox 96 07/15/19 14:33 - Orders/Labs/Meds Orders: Active Orders 24 hr Category Date Time Status RT Aerosol Therapy [RC] ASDIRECTED Care 07/15/19 14:43 Active CULTURE STREP A CONFIRMATION [] Stat Lab 07/15/19 14:38 Results STREP SCRN A RAPID W CULT CONF [] Stat Lab 07/15/19 14:38 Results Labs: Laboratory Tests 07/15/19 07/15/19 07/15/19 Range/Units 14:50 15:00 15:00 WBC 8.77 (4.0-11.0) K/uL RBC 4.68 (4.30-5.90) M/uL Hgb 14.7 (12.0-16.0) g/dL Hct 41.5 (36.0-46.0) % MCV 88.7 (80.0-98.0) fL MCH 31.4 (27.0-32.0) pg MCHC 35.4 (31.0-37.0) g/dL RDW Std Deviation 38.4 (28.0-62.0) fl RDW Coeff of Teresa 12 (11.0-15.0) % Plt Count 217 (150-400) K/uL MPV 9.30 (7.40-12.00) fL Neut % (Auto) 88.2 H (48.0-80.0) % Lymph % (Auto) 6.0 L (16.0-40.0) % [place] % (Auto) 4.4 (0.0-15.0) % Eos % (Auto) 1.3 (0.0-7.0) % Baso % (Auto) 0.1 (0.0-1.5) % Neut # (Auto) 7.7 H (1.4-5.7) K/uL Lymph # (Auto) 0.5 L (0.6-2.4) K/uL [place] # (Auto) 0.4 (0.0-0.8) K/uL Eos # (Auto) 0.1 (0.0-0.7) K/uL Baso # (Auto) 0.0 (0.0-0.1) K/uL Nucleated RBC % 0.0 /100WBC Nucleated RBCs # 0 K/uL Sodium 138 (136-145) mmol/L Potassium 3.7 (3.5-5.1) mmol/L Chloride 99 (98-107) mmol/L Carbon Dioxide 26.1 (21.0-32.0) mmol/L BUN 11 (7.0-18.0) mg/dL Creatinine 0.9 (0.6-1.0) mg/dL Est Cr Clr Drug Dosing 64.33 mL/min Estimated GFR (MDRD) > 60.0 ml/min Glucose 109 H (74-106) mg/dL Calcium 8.9 (8.5-10.1) mg/dL Total Bilirubin 0.5 (0.2-1.0) mg/dL AST 34 (15-37) IU/L ALT 58 (14-63) IU/L Alkaline Phosphatase 88 (46-116) U/L Total Protein 7.9 (6.4-8.2) g/dL Albumin 3.9 (3.4-5.0) g/dL Globulin 4.0 (2.6-4.0) g/dL Albumin/Globulin Ratio 1.0 (0.9-1.6) Lipase 120 (73-393) U/L Urine Color YELLOW Urine Appearance CLEAR Urine pH 6.0 (5.0-8.0) Ur Specific [place] 1.025 (1.001-1.035) Urine Protein NEGATIVE (NEGATIVE) mg/dL Urine Glucose (UA) NEGATIVE (NEGATIVE) mg/dL Urine Ketones NEGATIVE (NEGATIVE) mg/dL Urine Occult Blood NEGATIVE (NEGATIVE) Urine Nitrite NEGATIVE (NEGATIVE) Urine Bilirubin NEGATIVE (NEGATIVE) Urine Urobilinogen 0.2 (<2.0) EU/dL Ur Leukocyte Esterase NEGATIVE (NEGATIVE) Meds: Medications Discontinued Medications Generic Name Dose Route Start Last Admin Trade Name Freq PRN Reason Stop Dose Admin Albuterol/Ipratropium 3 ml 07/15/19 14:42 07/15/19 15:05 Duoneb 3.0-0.5 Mg/3 Ml NEB 07/15/19 14:43 3 ml ONETIME ONE Administration Sodium Chloride 1,000 mls @ 999 mls/hr 07/15/19 14:41 07/15/19 15:05 Normal Saline IV 07/15/19 15:41 999 mls/hr STAT ONE Administration Methylprednisolone Sodium Succinate 125 mg 07/15/19 14:42 07/15/19 15:06 Solu-Medrol IVPUSH 07/15/19 14:43 125 mg ONETIME ONE Administration Ondansetron HCl 4 mg 07/15/19 14:41 07/15/19 15:06 Zofran IVPUSH 07/15/19 14:42 4 mg ONETIME ONE Administration Departure - Departure Time of Disposition: 15:53 Disposition: Home, Self-Care 01 Clinical Impression: Bronchitis, Epigastric pain - Discharge Information Referrals: Tila Mcgraw DO [Primary Care Provider] - Forms: ED Department Discharge Additional Instructions: The following information is given to patients seen in the emergency department who are being discharged to home. This information is to outline your options for follow-up care. We provide all patients seen in our emergency department with a follow-up referral. The need for follow-up, as well as the timing and circumstances, are variable depending upon the specifics of your emergency department visit. If you don't have a primary care physician on staff, we will provide you with a referral. We always advise you to contact your personal physician following an emergency department visit to inform them of the circumstance of the visit and for follow-up with them and/or the need for any referrals to a consulting specialist. The emergency department will also refer you to a specialist when appropriate. This referral assures that you have the opportunity for follow-up care with a specialist. All of these measure are taken in an effort to provide you with optimal care, which includes your follow-up. Under all circumstances we always encourage you to contact your private physician who remains a resource for coordinating your care. When calling for follow-up care, please make the office aware that this follow-up is from your recent emergency room visit. If for any reason you are refused follow-up, please contact the [facility] Emergency Department at and asked to speak to the emergency department charge nurse. [facility] [address] [place] [id number] [facility] [address] [place] [id number] 1. Please use Tylenol and/or Ibuprofen as needed for pain and fever management. You can use [id number] cough and cold medication for symptomatic relief. 2. Get plenty of Rest. Encourage fluids to prevent dehydration. 3. Please follow up with your primary care provider. Return to the ED as needed as discussed. Sepsis Event Note - Evaluation Sepsis Screening Result: No Definite Risk - Focused Exam Vital Signs: Vital Signs Temp Pulse Resp BP Pulse Ox 07/15/19 14:33 98.1 F 116 H 18 129/82 96 Date Exam was Performed: 07/15/19 Time Exam was Performed: 15:52 - My Orders Last 24 Hours: My Active Orders 07/15/19 14:38 CULTURE STREP A CONFIRMATION [RM] Stat STREP SCRN A RAPID W CULT CONF [RM] Stat 07/15/19 14:43 RT Aerosol Therapy [RC] ASDIRECTED - Assessment/Plan Last 24 Hours: My Active Orders 07/15/19 14:38 CULTURE STREP A CONFIRMATION [RM] Stat STREP SCRN A RAPID W CULT CONF [RM] Stat 07/15/19 14:43 RT Aerosol Therapy [RC] ASDIRECTED
[2019-07-15] MEDS ORDERED: Albuterol/Ipratropium 3.0-0.5 MG/3 ML Neb Soln NEB ONE (14:42)
[2019-07-15] MEDS ORDERED: methylPREDNISolone Sodium Succinate 125 MG/2 ML SDV IVPUSH ONE (14:42)
--- NOTE | 2019-07-15 15:31 | CR ---
Chest: 2 views of the chest were obtained. Comparison: Prior chest x-ray of 02/14/18. Heart size and mediastinum are normal. Lungs are clear with no acute parenchymal change. Bony structures are unremarkable. Impression: 1. Nothing acute is seen on 2 view chest x-ray. Diagnostic code #1 This report was dictated in Mountain Standard Time
[2019-07-15 15:38] LABS: BLOOD UREA NITROGEN,BUN 11 mg/dL (7.0-18.0); CARBON DIOXIDE,CO2 26.1 mmol/L (21.0-32.0); CHLORIDE,CL 99 mmol/L (98-107); GLUCOSE RANDOM 109 mg/dL (74-106); LIPASE 120 U/L (73-393); POTASSIUM,K 3.7 mmol/L (3.5-5.1); SODIUM,NA 138 mmol/L (136-145)
[2019-07-15 16:03] VITALS: BP 111/61; PULSE 97
== END 2019-07-15 16:02 | disposition home or self-care (01) ==
LOC: MW.ED 14:21
DX: J40 Bronchitis, not specified as acute or chronic (principal); F31.9 Bipolar disorder, unspecified; Z79.899 Other long term (current) drug therapy
CPT/HCPCS: 71046; 80053; 81003; 83690; 85025; 87081; 87804; 87880; 96361; 96374; 96375; 99285; J2405; J2930; J7030; J7620-GY

== ENCOUNTER 2020-08-01 08:11 | Day surgery (SDC) | payer MEDICAID ==
[~2020-08-01 08:11] MED LIST: Lactated Ringers 1,000 ML IV SCH; Sodium Chloride 0.9% 10 ML SDV IV PRN; Sodium Chloride 0.9% 10 ML Syringe FLUSH PRN; Sodium Chloride 0.9% 2.5 ML Syringe FLUSH PRN
[2020-08-01] MEDS ORDERED: Propofol 200 MG/20 ML SDV ONE ×2 (08:39→10:23)
[2020-08-01] MEDS ORDERED: Ondansetron 4 MG/2 ML SDV ONE (08:39)
[2020-08-01] MEDS ORDERED: Midazolam 1 MG/ML 2 ML SDV ONE (08:39)
[2020-08-01] MEDS ORDERED: fentaNYL 100 MCG/2 ML SDV ONE (08:39)
--- NOTE | 2020-08-01 08:54 | PCM.PREANE ---
Preanesthetic Assessment - Anesthesia/Transfusion/Family Hx Anesthesia History: Prior Anesthesia Without Reaction Family History of Anesthesia Reaction: No Transfusion History: No Prior Transfusion(s) - Review of Systems General: No Symptoms Pulmonary: No Symptoms Cardiovascular: No Symptoms Gastrointestinal: Constipation Neurological: No Symptoms Other: Reports: None - Physical Assessment NPO Status Date: 07/31/20 Height: 5 ft 2 in Weight: 81.647 kg ASA Class: 5E Emergency Mental Status: Alert & Oriented x3 Airway Class: Mallampati = 2 Dentition: Reports: Normal Dentition ROM/Head Extension: Full Lungs: Clear to Auscultation, Normal Respiratory Effort Cardiovascular: Regular Rate, Regular Rhythm - Allergies Allergies/Adverse Reactions: Allergies Allergy/AdvReac Type Severity Reaction Status Date / Time No Known Allergies Allergy Verified 07/29/20 14:02 - Blood Blood Available: No - Anesthesia Plan Pre-Op Medication Ordered: None - Acknowledgements Anesthesia Type Planned: General Anesthesia (tiva) Pt an Appropriate Candidate for the Planned Anesthesia: Yes Alternatives and Risks of Anesthesia Discussed w Pt/Guardian: Yes Pt/Guardian Understands and Agrees with Anesthesia Plan: Yes PreAnesthesia Questionnaire - Past Health History Medical/Surgical History: Denies Medical/Surgical History HEENT History: Reports: Impaired Vision Other HEENT History: wears glasses Cardiovascular History: Reports: None Respiratory History: Reports: None Gastrointestinal History: Reports: None Genitourinary History: Reports: None 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: Musculoskeletal History: Reports: None Neurological History: Reports: None Psychiatric History: Reports: Anxiety, Bipolar Endocrine/Metabolic History: Reports: None Hematologic History: Reports: None Immunologic History: Reports: None Oncologic (Cancer) History: Reports: None Dermatologic History: Reports: None - Infectious Disease History Infectious Disease History: Reports: Chicken Pox - Past Surgical History Female Surgical History: Reports: Hysterectomy - SUBSTANCE USE Tobacco Use Status *Q: Current Every Day Tobacco User Tobacco Use Within Last Twelve Months: Cigarettes Recreational Drug Use History: No - HOME MEDS Home Medications: Home Meds FLUoxetine [PROzac] 60 mg PO BEDTIME 09/19/16 [History] Dextroamphetamine/Amphetamine [Adderall] 30 mg PO BEDTIME 03/20/19 [History] Estrogens, Conjugated [Premarin] 0.3 mg PO BEDTIME 03/20/19 [History] Buprenorphine HCl/Naloxone HCl [Zubsolv 11.4-2.9 mg Tablet Sl] 1 each SL TID 07/29/20 [History] Cyclobenzaprine HCl 5 - 10 mg PO TID PRN 07/29/20 [History] Fish Oil/[place]-3 Fatty Acids [Fish Oil 1,000 MG] 2,000 mg PO BEDTIME 07/29/20 [History] buPROPion HCL [Bupropion HCl Sr] 300 mg PO BEDTIME 07/29/20 [History] - CURRENT (IN HOUSE) MEDS Current Meds: Current Medications Lactated Ringer's (Ringers, Lactated) 1,000 mls @ 125 mls/hr IV ASDIRECTED KEMAR Sodium Chloride (Saline Flush) 10 ml FLUSH ASDIRECTED PRN PRN Reason: Keep Vein Open Sodium Chloride (Saline Flush) 2.5 ml FLUSH ASDIRECTED PRN PRN Reason: Keep Vein Open Sodium Chloride (Saline Flush) 10 ml FLUSH ASDIRECTED PRN PRN Reason: Keep Vein Open Sodium Chloride (Saline Flush) 2.5 ml FLUSH ASDIRECTED PRN PRN Reason: Keep Vein Open Sodium Chloride (Normal Saline) 10 ml IV ASDIRECTED PRN PRN Reason: IV Use Discontinued Medications Fentanyl (Sublimaze) Confirm Administered Dose 100 mcg .ROUTE .STK-MED ONE Stop: 08/01/20 08:40 Midazolam HCl (Versed 1 Mg/Ml) Confirm Administered Dose 2 mg .ROUTE .STK-MED ONE Stop: 08/01/20 08:40 Ondansetron HCl (Zofran) Confirm Administered Dose 4 mg .ROUTE .STK-MED ONE Stop: 08/01/20 08:40 Propofol (Diprivan 20 Ml) Confirm Administered Dose 200 mg .ROUTE .STK-MED ONE Stop: 08/01/20 08:40
--- NOTE | 2020-08-01 11:13 | PCM.OPNOTE ---
- General Post-Op/Procedure Note Date of Surgery/Procedure: 08/01/20 Operative Procedure(s): Diagnostic colonoscopy Findings: Hyperplastic appearing sigmoid colon polyps, redundant sigmoid colon, biopsies of sigmoid and rectum Pre Op Diagnosis: Chronic constipation Post-Op Diagnosis: Chronic constipation, hyperplastic colon polyps of sigmoid Anesthesia Technique: MAC Primary Surgeon: Tana Duggan Condition: Good
--- NOTE | 2020-08-01 11:23 | PCM.POSTAN ---
POST ANESTHESIA ASSESSMENT - MENTAL STATUS Mental Status: Alert, Oriented - VITAL SIGNS Vital Signs: Last Vital Signs Temp 35.9 C L 08/01/20 08:30 Pulse 85 08/01/20 11:21 Resp 16 08/01/20 11:21 BP 112/77 08/01/20 11:21 Pulse Ox 98 08/01/20 11:21 - RESPIRATORY Respiratory Status: Respiratory Rate WNL, Airway Patent, O2 Saturation Stable - CARDIOVASCULAR CV Status: Pulse Rate WNL, Blood Pressure Stable - GASTROINTESTINAL GI Status: No Symptoms - POST OP HYDRATION Hydration Status: Adequate & Stable
[2020-08-01 11:37] VITALS: BP 110/67; PULSE 81
--- NOTE | 2020-08-01 12:23 | PCM48HPAN ---
Post Anesthesia Note - EVALUATION WITHIN 48HRS OF ANESTHETIC Vital Signs in Normal Range: Yes Patient Participated in Evaluation: Yes Respiratory Function Stable: Yes Airway Patent: Yes Cardiovascular Function Stable: Yes Hydration Status Stable: Yes Pain Control Satisfactory: Yes Nausea and Vomiting Control Satisfactory: Yes Mental Status Recovered: Yes Vital Signs: Last Vital Signs Temp 98.2 F 08/01/20 11:25 Pulse 81 08/01/20 11:25 Resp 15 08/01/20 11:25 BP 110/67 08/01/20 11:25 Pulse Ox 97 08/01/20 11:25
--- NOTE | 2020-08-01 20:17 | OR ---
SURGEON: TANA DUGGAN MD DATE OF PROCEDURE: 08/01/2020 PREOPERATIVE DIAGNOSIS: Chronic constipation. POSTOPERATIVE DIAGNOSES: 1. Chronic constipation. 2. Sigmoid colon polyps x2. PROCEDURE PERFORMED: Diagnostic colonoscopy with polypectomy and biopsy. PRIMARY SURGEON: Tana Duggan MD ANESTHESIA: MAC. INSTRUMENT USED: Olympus colonoscope. EXTENT OF EXAM: To the cecum. PREPARATION: Good. LIMITATIONS: None. INDICATIONS FOR EXAMINATION: The patient is a 39-year-old female who presents with chronic constipation. She has tried multiple [id number] laxatives with little relief in her symptoms. The decision was made to proceed with a diagnostic colonoscopy. The patient and I discussed the procedure; expected perioperative course; and the risks including bleeding, infection, or damage to surrounding structures including perforation. The patient verbalized understanding and wishes to proceed. PROCEDURE IN DETAIL: The patient was brought into the endoscopy suite and placed in a left lateral decubitus position. A time-out was completed verifying the patient's name, age, date of , allergies, and procedure to be performed. Monitored anesthesia care was induced and continuous oxygen was provided via nasal cannula throughout the procedure. After adequate sedation was achieved, a digital rectal exam was performed. This exam was normal. A well-lubricated colonoscope was inserted in the rectum and advanced under direct visualization to the level of the cecum. This was somewhat difficult given that the patient had a very redundant sigmoid colon. I was able to reach the cecum, which was identified by both visual and anatomic landmarks. A photograph was taken of the cecal cap, but due to the redundancy of her colon and looping of the scope more proximally, I was unable to retroflex the scope within the cecum. The scope was then fully withdrawn while examining the color, texture, anatomy, and integrity of the mucosa from the cecum to the anal canal. The terminal ileum appeared normal. The mucosa of the colon all appeared healthy and pink with no signs of inflammation or ulceration. Random biopsies were taken in the sigmoid colon as well as in the rectum using cold biopsy forceps. In the distal sigmoid colon, the patient was noted to have two small polyps. These appeared to be hyperplastic, but I removed them both. They were sent to pathology, labeled as sigmoid colon polyps. The scope was then brought into the rectum. I attempted to retroflex the scope within the rectum; however, I was unable to do so as the patient was unable to keep the insufflation. I slowly withdrew my scope, making sure to take good examination of the anal canal and rectum. No abnormalities were noted. The scope was removed and the procedure terminated. The cecum to anus time was 14 minutes. The patient tolerated the procedure well and was transferred to the PACU in stable condition. ENDOSCOPIC DIAGNOSES: 1. Chronic constipation. 2. Sigmoid colon polyps x2. RECOMMENDATIONS: Follow up in clinic in 2 weeks. RAÚL DAVIS /[id number]
== END 2020-08-01 11:45 | disposition home or self-care (01) ==
LOC: MW.SDS 08:11
PROVIDERS: ATTEND Surgery
DX: Z12.11 Encounter for screening for malignant neoplasm of colon (principal); K63.5 Polyp of colon; K59.09 Other constipation; E78.1 Pure hyperglyceridemia; E66.9 Obesity, unspecified; Z79.899 Other long term (current) drug therapy; Z98.890 Other specified postprocedural states; Z68.33 Body mass index [BMI] 33.0-33.9, adult
CPT/HCPCS: 45380; J2250; J2405; J2704; J7120; 00811; 88305; J3010

== ENCOUNTER 2021-04-11 13:01 | Emergency (ER) | payer MEDICAID ==
[2021-04-11] MEDS ORDERED: Lidocaine 2% Viscous Solution 15 ML Cup PO ONE (13:17)
[2021-04-11] MEDS ORDERED: Benzocaine 20% Topical Spray UD MUCMEM ONE (13:17)
--- NOTE | 2021-04-11 13:23 | EDM.PDOC ---
ED HPI GENERAL MEDICAL PROBLEM - General Chief Complaint: ENT Problem Stated Complaint: BROKEN TOOTH Time Seen by Provider: 04/11/21 13:14 Source of Information: Reports: Patient History Limitations: Reports: No Limitations - History of Present Illness INITIAL COMMENTS - FREE TEXT/NARRATIVE: HISTORY AND PHYSICAL: History of present illness: Patient is a 40-year-old female who presents to the emergency room with complaints of right posterior dental pain. States she has had a known broken tooth for "awhile" now. Started to cause increase pain over the past few days so she stopped her Suboxone. She thought maybe this medication was causing her dental pain. She did attempt to get into the walk-in dental clinic although states they required a $500 upfront fee. She states she is not able to afford this. She has been using [id number] remedies without any relief. She denies any injury, trauma or falls. Patient denies any fever, chills, headache, change in vision, syncope or near syncope. Denies any chest pain, back pain, shortness of breath or cough. Denies any GI or symptoms. Patient has been eating and drinking appropriately. No recent travel or sick contacts. Review of systems: As per history of present illness and below otherwise all systems reviewed and negative. Past medical history: As per history of present illness and as reviewed below otherwise noncontributory. Surgical history: As per history of present illness and as reviewed below otherwise noncontributory. Social history: See social history for further information Family history: As per history of present illness and as reviewed below otherwise noncontributory. Physical exam: General: Well developed and well nourished. Alert and orientated x 3. Nontoxic in appearance and in no acute distress. Vital signs are stable and have been reviewed by me. Nursing notes were reviewed. HEENT: Atraumatic, normocephalic, pupils equal and reactive bilaterally, negative for conjunctival pallor or scleral icterus, mucous membranes moist, Tooth #31 decayed with discoloration to the posterior aspect. No floor tenderness. TMs normal bilaterally, throat clear, neck supple, nontender, trachea midline. No drooling or trismus noted. No meningeal signs. No hot potato voice noted. Lungs: Clear to auscultation bilaterally. No wheezes, rales, or rhonchi. Chest nontender. Normal work of breathing, no accessory muscles used. Heart: S1S2, regular rate and rhythm without overt murmur, gallops, or rubs. No JVD. No peripheral edema Abdomen: Soft, nondistended, nontender. Skin: Intact, warm, dry. No lesions or rashes noted. Hematologic: No petechiae or purpra. Mucosa appropriate color and normal nail bed color and refill. Extremities: Atraumatic, moves all extremities per self without difficulty or deficits, negative for cords or calf pain. Neurovascular unremarkable. Neuro: Awake, alert, oriented. Cranial nerves II through XII unremarkable. Cerebellum unremarkable. Motor and sensory unremarkable throughout. Exam nonfocal. Psychiatric: Mood and affect are appropriate. Normal thought process. Answering questions appropriately. Please note that the patient was seen and evaluated during the 2019 SARS-CoV-2 novel coronavirus pandemic period. Community viral transmission is ongoing at time of this encounter and the emergency department is operating under pandemic response procedures. Medical Decision Making: Patient states she has been stopping her Suboxone. Encouraged her not to stop any of her home medications. I do not feel comfortable giving her narcotics for her dental pain as this does not appear acute (she's on adderral and suboxone), will give her dental balls with antibiotic and diclofenac. I have talked with the patient about today's findings, in addition to providing specific details for plan of care. Reassessment at the time of disposition demonstrates that the patient is in no acute distress. The patient is stable for discharge, counseling was provided and we discussed in great detail signs and symptoms that would prompt them to return to the Emergency Department. Medication, follow up and supportive care measures were reviewed and discussed. Voices understanding and is agreeable to plan of care. Denies any further questions or concerns at this time. Diagnostics: None Therapeutics: Dental Balls Prescription: Diclofenac, Augmentin Impression: Dentalgia Dental caries Plan: 1. You were evaluated today on an emergent basis. You need to see a dentist for further care of the tooth that is causing the pain. Soft foods. Plenty of fluids. 2. Tylenol and/or ibuprofen as needed for pain management. "Tooth Balls" have been given to you; apply along the gumline every 2-3 hours as needed. Do not swallow these; external use only. 3. We encourage you to follow up with a dentist for re-evaluation and further care/management. 4. If your symptoms should worsen, new symptoms develop or any of the signs and symptoms we discussed should arise please return to the emergency room or call 911 (if needed). Definitive disposition and diagnosis as appropriate pending reevaluation and review of above. tooth Pain Score (Numeric/FACES): 9 - Related Data Allergies Allergy/AdvReac Type Severity Reaction Status Date / Time No Known Allergies Allergy Verified 04/11/21 13:14 Home Meds: Home Meds FLUoxetine [PROzac] 60 mg PO BEDTIME 09/19/16 [History] Estrogens, Conjugated [Premarin] 0.3 mg PO BEDTIME 03/20/19 [History] Buprenorphine HCl/Naloxone HCl [Zubsolv 11.4-2.9 mg Tablet Sl] 1 each SL TID 07/29/20 [History] Cyclobenzaprine HCl 5 - 10 mg PO TID PRN 07/29/20 [History] buPROPion HCL [Bupropion HCl Sr] 300 mg PO BEDTIME 07/29/20 [History] Amoxicillin/Clavulanate K [Augmentin 875-125 MG] 1 tab PO BID 10 Days #14 tablet 04/11/21 [Rx] Diclofenac Sodium [Voltaren] 75 mg PO BIDMEALS PRN #30 tab.cr 04/11/21 [Rx] Past Medical History - Past Health History Medical/Surgical History: Denies Medical/Surgical History HEENT History: Reports: Impaired Vision Other HEENT History: wears glasses Cardiovascular History: Reports: None Respiratory History: Reports: None Gastrointestinal History: Reports: None Genitourinary History: Reports: None [employer] History: Reports: Musculoskeletal History: Reports: None Neurological History: Reports: None Psychiatric History: Reports: Anxiety, Bipolar Endocrine/Metabolic History: Reports: None Hematologic History: Reports: None Immunologic History: Reports: None Oncologic (Cancer) History: Reports: None Dermatologic History: Reports: None - Infectious Disease History Infectious Disease History: Reports: Chicken Pox - Past Surgical History Female Surgical History: Reports: Hysterectomy Social & Family History - Family History Family Medical History: No Pertinent Family History - Caffeine Use Caffeine Use: Reports: Coffee, Energy Drinks, Soda, Tea ED ROS ENT - Review of Systems Review Of Systems: Comprehensive ROS is negative, except as noted in HPI. ED EXAM, ENT - Physical Exam Exam: See Below (See dication) Course - Vital Signs Last Recorded V/S: Last Vital Signs Temp 98.4 F 04/11/21 13:08 Pulse 95 04/11/21 14:00 Resp 16 04/11/21 14:00 BP 136/79 04/11/21 14:00 Pulse Ox 96 04/11/21 14:00 - Orders/Labs/Meds Meds: Medications Discontinued Medications Generic Name Dose Route Start Last Admin Trade Name Gabby PRN Reason Stop Dose Admin Benzocaine 2 each 04/11/21 13:17 04/11/21 13:37 Benzocaine 20% Topical [place] Ud MUCMEM 04/11/21 13:18 2 each ONETIME ONE Administration Lidocaine HCl 15 ml 04/11/21 13:17 04/11/21 13:37 Lidocaine 2% Viscous Solution 15 Ml Cup PO 04/11/21 13:18 15 ml ONETIME ONE Administration Departure - Departure Time of Disposition: 13:22 Disposition: Home, Self-Care 01 Clinical Impression: Dentalgia, Dental decay - Discharge Information Prescriptions: Amoxicillin/Clavulanate K [Augmentin 875-125 MG] 1 tab PO BID 10 Days #14 tablet Diclofenac Sodium [Voltaren] 75 mg PO BIDMEALS PRN #30 tab.cr PRN Reason: Pain Instructions: Dental Caries, Adult, [id number] Referrals: PCP,None [Primary Care Provider] - Forms: ED Department Discharge Additional Instructions: The following information is given to patients seen in the emergency department who are being discharged to home. This information is to outline your options for follow-up care. We provide all patients seen in our emergency department with a follow-up referral. The need for follow-up, as well as the timing and circumstances, are variable depending upon the specifics of your emergency department visit. If you don't have a primary care physician on staff, we will provide you with a referral. We always advise you to contact your personal physician following an e mergency department visit to inform them of the circumstance of the visit and for follow-up with them and/or the need for any referrals to a consulting specialist. The emergency department will also refer you to a specialist when appropriate. This referral assures that you have the opportunity for follow-up care with a specialist. All of these measure are taken in an effort to provide you with op timal care, which includes your follow-up. Under all circumstances we always encourage you to contact your private physician who remains a resource for coordinating your care. When calling for follow-up care, please make the office aware that this follow-up is from your recent emergency room visit. If for any reason you are refused follow-up, please contact the [facility] Emergency Department at and asked to speak to the emergency department charge nurse. [facility] [address] [place] [id number] [facility] [address] [place] [id number] Thank you for choosing the [facility] emergency department in [place] for your medical needs today. It was a pleasure caring for you. Today you were seen in the emergency department for dental pain. Your prescription was electronically sent to: 1. You were evaluated today on an emergent basis. You need to see a dentist for further care of the tooth that is causing the pain. Soft foods. Plenty of fluids. 2. Tylenol and/or ibuprofen as needed for pain management. "Tooth Balls" have been given to you; apply along the gumline every 2-3 hours as needed. Do not swallow these; external use only. 3. We encourage you to follow up with a dentist for re-evaluation and further care/management. 4. If your symptoms should worsen, new symptoms develop or any of the signs and symptoms we discussed should arise please return to the emergency room or call 911 (if needed). Sepsis Event Note (ED) - Evaluation Sepsis Screening Result: No Definite Risk - Focused Exam Vital Signs: Vital Signs Temp Pulse Resp BP Pulse Ox 04/11/21 14:00 95 16 136/79 96 04/11/21 13:08 98.4 F 110 H 20 146/89 H 96
[2021-04-11 14:01] VITALS: BP 136/79; PULSE 95
== END 2021-04-11 14:02 | disposition home or self-care (01) ==
LOC: MW.ED 13:01
DX: K02.9 Dental caries, unspecified (principal)
CPT/HCPCS: 99282; A9270

== ENCOUNTER 2021-07-13 11:09 | Emergency (ER) | payer MEDICAID ==
[2021-07-13 11:51] VITALS: PULSE 89
[2021-07-13] MEDS ORDERED: Ibuprofen 600 MG Tab PO ONE (12:09)
[2021-07-13] MEDS ORDERED: Cephalexin 500 MG Cap PO ONE (12:09)
[2021-07-13 12:44] VITALS: BP 125/80
== END 2021-07-13 12:44 | disposition home or self-care (01) ==
LOC: MW.ED 11:09
DX: K04.7 Periapical abscess without sinus (principal); Z72.0 Tobacco use
CPT/HCPCS: 99282; A9270

== ENCOUNTER 2022-12-20 16:04 | Emergency (ER) | payer MEDICAID ==
[2022-12-20] MEDS ORDERED: Benzonatate 100 MG Cap PO ONE (17:05)
[2022-12-20 17:42] LABS: BASOPHILS ABSOLUTE AUTO 0.1 K/uL (0.0-0.1); BASOPHILS PERCENT AUTO 0.6 % (0.0-1.5); EOSINOPHILS ABSOLUTE AUTO 0.5 K/uL (0.0-0.7); EOSINOPHILS PERCENT AUTO 5.3 % (0.0-7.0); HEMATOCRIT 38.3 % (36.0-46.0); HEMOGLOBIN 13.5 g/dL (12.0-16.0); LYMPHOCYTES ABSOLUTE AUTO 3.4 K/uL (0.6-2.4); LYMPHOCYTES PERCENT AUTO 33.1 % (16.0-40.0); MEAN CORPUSCULAR HEMOGLOBIN 30.5 pg (27.0-32.0); MEAN CORPUSCULAR HGB CONC 35.2 g/dL (31.0-37.0); MEAN CORPUSCULAR VOLUME 86.7 fL (80.0-98.0); MONOCYTES ABSOLUTE AUTO 0.4 K/uL (0.0-0.8); MONOCYTES PERCENT AUTO 4.3 % (0.0-15.0); NEUTROPHILS ABSOLUTE AUTO 5.8 K/uL (1.4-5.7); NEUTROPHILS PERCENT AUTO 56.7 % (48.0-80.0); NRBC ABSOLUTE 0 K/uL; PLATELET COUNT,PLT 289 K/uL (150-400); RED BLOOD CELL COUNT 4.42 M/uL (4.30-5.90); WHITE BLOOD CELL COUNT,WBC 10.23 K/uL (4.0-11.0)
[2022-12-20 18:11] LABS: A/G RATIO 1.1 (0.9-1.6); ALANINE AMINOTRANSFERASE,ALT 40 IU/L (14-63); ALBUMIN 3.9 g/dL (3.4-5.0); ALKALINE PHOSPHATASE 94 U/L (46-116); ASPARTATE AMNIOTRANSFERASE,AST 24 IU/L (15-37); BILIRUBIN TOTAL 0.3 mg/dL (0.2-1.0); BLOOD UREA NITROGEN,BUN 12 mg/dL (7.0-18.0); CALCIUM 8.9 mg/dL (8.5-10.1); CARBON DIOXIDE,CO2 27.7 mmol/L (21.0-32.0); CHLORIDE,CL 101 mmol/L (98-107); CREATININE 0.8 mg/dL (0.6-1.0); EST CRCL DRUG DOSING (CG) 99.06 mL/min; GLUCOSE RANDOM 90 mg/dL (74-106); PROTEIN TOTAL,TP 7.6 g/dL (6.4-8.2); SODIUM,NA 138 mmol/L (136-145)
[2022-12-20 18:18] LABS: ESTIMATED GFR 94 mL/min (>60)
[2022-12-20 18:40] VITALS: BP 138/86; PULSE 65
== END 2022-12-20 18:38 | disposition home or self-care (01) ==
LOC: MW.ED 16:04
DX: R07.9 Chest pain, unspecified (principal); F17.210 Nicotine dependence, cigarettes, uncomplicated; Z20.822 Contact with and (suspected) exposure to COVID-19
CPT/HCPCS: 36415; 71045; 80053; 84484; 85025; 87635; 93005; 99285; A9270; 93010; 99283; U0002

== ENCOUNTER 2023-03-15 10:04 | Emergency (ER) | payer MEDICAID ==
[2023-03-15] MEDS ORDERED: traMADol 50 MG Tab PO ONE (12:25)
[2023-03-15 13:33] VITALS: BP 136/84; PULSE 77
== END 2023-03-15 13:32 | disposition home or self-care (01) ==
LOC: MW.ED 10:04
DX: R22.41 Localized swelling, mass and lump, right lower limb (principal)
CPT/HCPCS: 73610; 93971; 99284; A9270; 99283

== ENCOUNTER 2023-03-27 12:30 | Emergency (ER) | payer MEDICAID ==
[2023-03-27 13:12] LABS: BASOPHILS PERCENT AUTO 0.4 % (0.0-1.5); EOSINOPHILS ABSOLUTE AUTO 0.1 K/uL (0.0-0.7); EOSINOPHILS PERCENT AUTO 1.3 % (0.0-7.0); HEMATOCRIT 41.8 % (36.0-46.0); HEMOGLOBIN 14.6 g/dL (12.0-16.0); LYMPHOCYTES ABSOLUTE AUTO 3.3 K/uL (0.6-2.4); LYMPHOCYTES PERCENT AUTO 29.9 % (16.0-40.0); MEAN CORPUSCULAR HEMOGLOBIN 30.1 pg (27.0-32.0); MEAN CORPUSCULAR HGB CONC 34.9 g/dL (31.0-37.0); MEAN CORPUSCULAR VOLUME 86.2 fL (80.0-98.0); MONOCYTES ABSOLUTE AUTO 0.8 K/uL (0.0-0.8); NEUTROPHILS ABSOLUTE AUTO 6.7 K/uL (1.4-5.7); NEUTROPHILS PERCENT AUTO 61.4 % (48.0-80.0); NRBC ABSOLUTE 0 K/uL; PLATELET COUNT,PLT 305 K/uL (150-400); RED BLOOD CELL COUNT 4.85 M/uL (4.30-5.90); WHITE BLOOD CELL COUNT,WBC 10.92 K/uL (4.0-11.0)
[2023-03-27 13:37] LABS: BLOOD UREA NITROGEN,BUN 16 mg/dL (7.0-18.0); CALCIUM 9.6 mg/dL (8.5-10.1); CARBON DIOXIDE,CO2 29.5 mmol/L (21.0-32.0); CHLORIDE,CL 98 mmol/L (98-107); CREATINE KINASE,CK 85 U/L (26-308); CREATININE 0.9 mg/dL (0.6-1.0); GLUCOSE RANDOM 84 mg/dL (74-106); SODIUM,NA 136 mmol/L (136-145)
[2023-03-27 13:39] LABS: ESTIMATED GFR 82 mL/min (>60)
[2023-03-27 15:13] VITALS: BP 145/94; PULSE 85
== END 2023-03-27 15:11 | disposition home or self-care (01) ==
LOC: MW.ED 12:30
DX: R06.02 Shortness of breath (principal); M79.604 Pain in right leg; M79.605 Pain in left leg; Z79.899 Other long term (current) drug therapy
CPT/HCPCS: 36415; 71046; 71046-26; 80048; 82550; 84484; 85025; 85379; 93005; 93010; 99283; 99285

== ENCOUNTER 2023-05-10 10:15 | Emergency (ER) | payer MEDICAID ==
[2023-05-10] MEDS ORDERED: Sodium Chloride 0.9% 2.5 ML Syringe FLUSH PRN (10:21)
[2023-05-10] MEDS ORDERED: Sodium Chloride 0.9% 10 ML Syringe FLUSH PRN (10:21)
[2023-05-10 11:01] LABS: BASOPHILS ABSOLUTE AUTO 0.04 K/uL (0.00-0.20); BASOPHILS PERCENT AUTO 0.4 % (0.0-1.0); EOSINOPHILS ABSOLUTE AUTO 0.09 K/uL (0.00-0.45); EOSINOPHILS PERCENT AUTO 0.9 % (0.0-6.0); HEMATOCRIT 39.7 % (37.0-47.0); HEMOGLOBIN 14.2 g/dL (12.0-16.0); IMMATURE GRAN ABSOLUTE AUTO 0.05 K/uL (0.00-0.05); IMMATURE GRAN PERCENT AUTO 0.5 % (0.0-0.4); LYMPHOCYTES ABSOLUTE AUTO 2.96 K/uL (1.00-4.80); LYMPHOCYTES PERCENT AUTO 31.2 % (24.0-44.0); MEAN CORPUSCULAR HEMOGLOBIN 30.6 pg (28.0-32.0); MEAN CORPUSCULAR HGB CONC 35.8 g/dL (32.0-36.0); MEAN CORPUSCULAR VOLUME 85.6 fL (83.0-99.0); MEAN PLATELET VOLUME 8.9 fL (9.4-12.3); MONOCYTES ABSOLUTE AUTO 0.43 K/uL (0.00-0.80); MONOCYTES PERCENT AUTO 4.5 % (0.0-8.0); NEUTROPHILS ABSOLUTE AUTO 5.92 K/uL (1.80-7.70); NEUTROPHILS PERCENT AUTO 62.5 % (41.0-71.0); PLATELET COUNT,PLT 298 K/uL (150-400); RED BLOOD CELL COUNT 4.64 M/uL (4.10-5.30); WHITE BLOOD CELL COUNT,WBC 9.49 K/uL (3.9-11.3)
[2023-05-10 11:23] LABS: CORONAVIRUS COVID-19 NAA NEGATIVE (NEGATIVE); INFLUENZA A NAA NEGATIVE (NEGATIVE); INFLUENZA B NAA NEGATIVE (NEGATIVE); RESPIRATORY SYNCYTIAL VIR NAA NEGATIVE (NEGATIVE)
[2023-05-10 11:35] LABS: ALANINE AMINOTRANSFERASE,ALT 29 IU/L (14-63); ALBUMIN 3.9 g/dL (3.4-5.0); ALKALINE PHOSPHATASE 92 U/L (46-116); ASPARTATE AMNIOTRANSFERASE,AST 12 IU/L (15-37); BILIRUBIN TOTAL 0.4 mg/dL (0.2-1.0); BLOOD UREA NITROGEN,BUN 7 mg/dL (7.0-18.0); CALCIUM 9.1 mg/dL (8.5-10.1); CARBON DIOXIDE,CO2 28.8 mmol/L (21.0-32.0); CHLORIDE,CL 101 mmol/L (98-107); CREATININE 0.9 mg/dL (0.6-1.0); GLUCOSE RANDOM 87 mg/dL (74-106); POTASSIUM,K 3.5 mmol/L (3.5-5.1); PROTEIN TOTAL,TP 7.9 g/dL (6.4-8.2); SODIUM,NA 138 mmol/L (136-145)
[2023-05-10 11:46] LABS: ESTIMATED GFR 82 mL/min (>60)
[2023-05-10] MEDS ORDERED: Ketorolac 60 MG/2 ML SDV IM ONE (12:07)
[2023-05-10] MEDS ORDERED: methylPREDNISolone Sodium Succinate 125 MG/2 ML SDV IM ONE (12:30)
[2023-05-10 12:38] LABS: APPEARANCE,URINE CLEAR; BILIRUBIN,URINE NEGATIVE (NEGATIVE); COLOR,URINE YELLOW; GLUCOSE,URINE NEGATIVE (NEGATIVE); KETONES,URINE NEGATIVE (NEGATIVE); LEUKOCYTE ESTERASE,URINE NEGATIVE (NEGATIVE); NITRITE,URINE NEGATIVE (NEGATIVE); OCCULT BLOOD,URINE NEGATIVE (NEGATIVE); PROTEIN,URINE NEGATIVE (NEGATIVE); UROBILINOGEN,URINE 0.2 EU/dL (<2.0)
[2023-05-10] MEDS ORDERED: Sodium Chloride 0.9% 1,000 ML IV ONE (12:41)
[2023-05-10] MEDS ORDERED: Iopamidol 755 MG/ML 500 ML Multipack Bottle IVPUSH STA (13:22)
[2023-05-10 13:54] LABS: AMPHETAMINES SCREEN, URINE PRESUMPTIVE POSITIVE (CUTOFF=500); BARBITURATE SCREEN,URINE NEGATIVE (CUTOFF=200); BENZODIAZEPINES SCREEN,URINE PRESUMPTIVE POSITIVE (CUTOFF=150); BUPRENORPHINE SCREEN,URINE NEGATIVE (CUTOFF=10); METHADONE SCREEN, URINE NEGATIVE (CUTOFF=200); METHAMPHETAMINES SCREEN, URINE NEGATIVE (CUTOFF=500); OXYCODONE SCREEN,URINE NEGATIVE (CUT0FF=100); PCP SCREEN,URINE NEGATIVE (CUTOFF=25); PROPOXYPHENE SCREEN,URINE NEGATIVE (CUTOFF=300); THC SCREEN,URINE 20 NG/ML NEGATIVE (CUTOFF=50)
[2023-05-10 14:28] VITALS: BP 146/70; PULSE 91
== END 2023-05-10 14:28 | disposition home or self-care (01) ==
LOC: MW.ED 10:15
DX: R06.02 Shortness of breath (principal); M79.10 Myalgia, unspecified site; Z20.822 Contact with and (suspected) exposure to COVID-19
CPT/HCPCS: 0241U; 36415; 71045; 71275; 80053; 80305; 81003; 83880; 84443; 84484; 85025; 85379; 86308; 93005; 96360; 96372; 99285; J1885; J2930; J3490; J7030; Q9967; 93010; 99284

== ENCOUNTER 2023-05-10 17:41 | Emergency (ER) | payer MEDICAID ==
[2023-05-10 18:03] VITALS: PULSE 113
[2023-05-10 18:23] VITALS: BP 151/82
== END 2023-05-10 18:23 | disposition home or self-care (01) ==
LOC: MW.ED 17:41
DX: Z13.9 Encounter for screening, unspecified (principal)
CPT/HCPCS: 99283; 99284

== ENCOUNTER 2023-05-19 10:32 | Emergency (ER) | payer MEDICAID ==
[2023-05-19] MEDS ORDERED: Morphine 4 MG/ML Syringe IVPUSH ONE (11:03)
[2023-05-19 11:22] LABS: BASOPHILS ABSOLUTE AUTO 0.07 K/uL (0.00-0.20); BASOPHILS PERCENT AUTO 0.6 % (0.0-1.0); EOSINOPHILS ABSOLUTE AUTO 0.09 K/uL (0.00-0.45); EOSINOPHILS PERCENT AUTO 0.7 % (0.0-6.0); HEMATOCRIT 38.6 % (37.0-47.0); HEMOGLOBIN 13.6 g/dL (12.0-16.0); IMMATURE GRAN ABSOLUTE AUTO 0.08 K/uL (0.00-0.05); IMMATURE GRAN PERCENT AUTO 0.6 % (0.0-0.4); LYMPHOCYTES ABSOLUTE AUTO 1.98 K/uL (1.00-4.80); MEAN CORPUSCULAR HEMOGLOBIN 30.6 pg (28.0-32.0); MEAN CORPUSCULAR HGB CONC 35.2 g/dL (32.0-36.0); MEAN CORPUSCULAR VOLUME 86.7 fL (83.0-99.0); MEAN PLATELET VOLUME 8.9 fL (9.4-12.3); NEUTROPHILS ABSOLUTE AUTO 9.67 K/uL (1.80-7.70); NEUTROPHILS PERCENT AUTO 78.1 % (41.0-71.0); PLATELET COUNT,PLT 314 K/uL (150-400); RED BLOOD CELL COUNT 4.45 M/uL (4.10-5.30); WHITE BLOOD CELL COUNT,WBC 12.39 K/uL (3.9-11.3)
[2023-05-19 11:34] LABS: A/G RATIO 0.9 (0.9-1.6); ALANINE AMINOTRANSFERASE,ALT 33 IU/L (14-63); ALBUMIN 3.8 g/dL (3.4-5.0); ALKALINE PHOSPHATASE 78 U/L (46-116); ASPARTATE AMNIOTRANSFERASE,AST 17 IU/L (15-37); BILIRUBIN TOTAL 0.3 mg/dL (0.2-1.0); BLOOD UREA NITROGEN,BUN 10 mg/dL (7.0-18.0); CALCIUM 9.4 mg/dL (8.5-10.1); CARBON DIOXIDE,CO2 26.3 mmol/L (21.0-32.0); CHLORIDE,CL 102 mmol/L (98-107); CREATININE 0.8 mg/dL (0.6-1.0); EST CRCL DRUG DOSING (CG) 72.45 mL/min; GLUCOSE RANDOM 97 mg/dL (74-106); POTASSIUM,K 3.8 mmol/L (3.5-5.1); PROTEIN TOTAL,TP 7.8 g/dL (6.4-8.2); SODIUM,NA 139 mmol/L (136-145)
[2023-05-19 11:36] LABS: ESTIMATED GFR 94 mL/min (>60)
[2023-05-19 12:40] VITALS: BP 140/91; PULSE 89
== END 2023-05-19 12:38 | disposition home or self-care (01) ==
LOC: MW.ED 10:32
DX: M54.6 Pain in thoracic spine (principal); Z90.710 Acquired absence of both cervix and uterus; Z79.899 Other long term (current) drug therapy
CPT/HCPCS: 36415; 71045; 80053; 84484; 85025; 93005; 96374; 99285; J2270

== ENCOUNTER 2024-06-05 09:47 | Emergency (ER) | payer MEDICAID ==
[2024-06-05] MEDS: Tetracaine HCl/PF 0.5% 4 ML Bottle EYEBOTH ONE (10:43)
[2024-06-05] MEDS: Erythromycin Base 0.5% Ophth Oint 1 GM Tube EYEBOTH ONE (11:12)
[2024-06-05 11:20] VITALS: BP 122/73; PULSE 88
== END 2024-06-05 11:19 | disposition home or self-care (01) ==
LOC: MW.ED 09:47
DX: H10.9 Unspecified conjunctivitis (principal); Z75.8 Other problems related to medical facilities and other health care; E66.9 Obesity, unspecified; Z90.710 Acquired absence of both cervix and uterus; Z79.899 Other long term (current) drug therapy
CPT/HCPCS: 99282; A9270; 99283; J3490

== ENCOUNTER 2024-06-06 17:36 | Emergency (ER) | payer MEDICAID ==
[2024-06-06] MEDS: Amoxicillin/Clavulanate K 875-125 MG Tab PO ONE (18:36)
[2024-06-06] MEDS: Sulfamethoxazole/Trimethoprim 800-160 MG Tab PO STA (18:36)
[2024-06-07 04:13] VITALS: BP 130/75; PULSE 86
== END 2024-06-06 20:45 | disposition home or self-care (01) ==
LOC: MW.ED 17:36
DX: L03.213 Periorbital cellulitis (principal); H10.9 Unspecified conjunctivitis; E66.9 Obesity, unspecified; F17.210 Nicotine dependence, cigarettes, uncomplicated; Z90.710 Acquired absence of both cervix and uterus; Z79.899 Other long term (current) drug therapy
CPT/HCPCS: 99283; A9270

== ENCOUNTER 2024-07-01 12:21 | Emergency (ER) | payer MEDICAID ==
[2024-07-01] MEDS: Lidocaine 2% Viscous Solution 15 ML UD PO ONE (13:20)
[2024-07-01] MEDS: Benzocaine 20% Topical Spray UD MUCMEM ONE (13:20)
[2024-07-01] MEDS: Amoxicillin/Clavulanate K 875-125 MG Tab PO ONE (13:21)
[2024-07-01 13:27] VITALS: BP 113/71; PULSE 94
== END 2024-07-01 13:25 | disposition home or self-care (01) ==
LOC: MW.ED 12:21
DX: K04.7 Periapical abscess without sinus (principal); E66.9 Obesity, unspecified; Z68.29 Body mass index [BMI] 29.0-29.9, adult; Z90.710 Acquired absence of both cervix and uterus; Z79.899 Other long term (current) drug therapy; Z75.8 Other problems related to medical facilities and other health care
CPT/HCPCS: 99283; A9270

== ENCOUNTER 2024-12-27 10:08 | Emergency (ER) | payer MEDICAID ==
[2024-12-27 10:27] VITALS: BP 128/83; PULSE 104
[2024-12-27] MEDS: Benzocaine 20% Topical Spray UD MUCMEM ONE (10:57)
[2024-12-27] MEDS: Lidocaine 2% Viscous Solution 15 ML UD PO ONE (10:58)
== END 2024-12-27 11:26 | disposition home or self-care (01) ==
LOC: MW.ED 10:08
DX: K04.7 Periapical abscess without sinus (principal); F17.200 Nicotine dependence, unspecified, uncomplicated; Z90.710 Acquired absence of both cervix and uterus; Z79.899 Other long term (current) drug therapy; Z75.3 Unavailability and inaccessibility of health-care facilities
CPT/HCPCS: 99282; A9270